=== PATIENT | female | born 1975 | race Two or more races ===

== ENCOUNTER → 2022-09-01 13:43 | Outpatient (BNVA) | payer OTHER, SELFPAY | PROVIDERS: Visit Provider Student in an Organized Health Care Education/Training Program | DX: M67.911 Unspecified disorder of synovium and tendon, right shoulder (principal); M79.7 Fibromyalgia; M17.0 Bilateral primary osteoarthritis of knee; M77.11 Lateral epicondylitis, right elbow; R53.83 Other fatigue; E66.9 Obesity, unspecified; Z68.30 Body mass index [BMI] 30.0-30.9, adult | CPT/HCPCS: 99202 ==

== ENCOUNTER 2022-10-29 10:44 | Outpatient (REF) | payer OTHER, SELFPAY ==
[2022-10-29 10:57] LABS: MANUAL DIFF FLAG NO
[2022-10-29 11:48] LABS: Basophils Percent Auto 0.3 % (0-2); Eosinophils Absolute Auto 0.1 X10*3/uL (0.0-0.4); Hematocrit 31.5 % (37.0-47.0); Hemoglobin 9.1 g/dl (12.0-16.0); Imm Gran Abs Auto 0.02 X10*3/uL (0.00-0.03); Imm Gran Pct Auto 0.3 % (0.0-0.4); Lymphocytes Percent Auto 33.2 % (20-40); Mean Corpuscular HGB Conc 28.9 g/dl (31.0-35.0); Mean Corpuscular Hemoglobin 20.4 pg (27.0-33.0); Mean Corpuscular Volume 70.6 fL (80.0-98.0); Mean Platelet Volume 10.3 fL (9.4-12.3); Monocytes Absolute Auto 0.5 X10*3/uL (0.1-1.2); Monocytes Percent Auto 8.5 % (2-11); Neutrophils Absolute Auto 3.4 x10*3/uL (2.0-8.3); Neutrophils Percent Auto 56.7 % (45-73); Platelet Count 382 X10*3/uL (160-400); Red Blood Count 4.46 X10*6/uL (4.20-5.50); Red Cell Distribution Width 19.4 % (11.0-16.0); White Blood Count 5.9 X10*3/uL (4.8-10.8)
[2022-10-29 12:30] LABS: Erythrocyte Sedimentation Rate 25 MM/HR (0-20)
[2022-10-29 12:43] LABS: Alanine Aminotransferase 9 U/L (0-31); Albumin Level 4.3 g/dL (3.5-5.0); Alkaline Phosphatase 83 U/L (39-117); Aspartate Amino Transferase 15 U/L (5-31); Bilirubin Total 0.8 mg/dL (0.0-1.0); Blood Urea Nitrogen 10 mg/dL (9-16); Calcium 9.3 mg/dL (8.4-10.2); Estimated Glomerular Filt Rate > 60; Glucose Random 91 mg/dL (60-115); Thyroid Stimulating Hormone 4.74 uIU/mL (0.32-4.0); Total Protein 7.4 g/dL (6.5-8.0)
[2022-10-29 12:52] LABS: Anion Gap 14 (12-20); Carbon Dioxide 22 mmol/L (22-29); Chloride 108 mmol/L (96-108); Potassium 4.4 mmol/L (3.3-5.1); Sodium 140 mmol/L (135-145)
[2022-11-03 13:29] LABS: Vitamin D 25-OH, D2 <4 ng/mL; Vitamin D 25-OH, D3 33 ng/mL; Vitamin D 25-OH, Total 33 ng/mL (30-100)
== END 2022-10-29 10:45 | disposition home or self-care (01) ==
LOC: HO.LAB 10:44
PROVIDERS: PCP Internal Medicine; Visit Provider Student in an Organized Health Care Education/Training Program
DX: Z13.21 Encounter for screening for nutritional disorder (principal); R53.83 Other fatigue; M67.911 Unspecified disorder of synovium and tendon, right shoulder
CPT/HCPCS: 36415; 80053; 82306; 82550; 84443; 85025; 85652; 86140

== ENCOUNTER → 2022-11-26 07:40 | Outpatient (BNVA) | payer OTHER, SELFPAY | PROVIDERS: PCP Internal Medicine; Visit Provider Student in an Organized Health Care Education/Training Program | DX: M79.7 Fibromyalgia (principal); M67.911 Unspecified disorder of synovium and tendon, right shoulder; D50.0 Iron deficiency anemia secondary to blood loss (chronic) | CPT/HCPCS: 99212 ==

== ENCOUNTER 2022-12-24 14:00 | Outpatient (RCR) | payer OTHER, SELFPAY ==
--- NOTE | 2022-12-01 15:03 | MHC.PT.EP ---
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 SHE HAS BEEN WALKING HER DOGS APPROX 30 MIN/ DAY. OBJECTIVELY, Pt HAS DECR HIP/ HS/CALF FLEXIBILITY Rt > Lt LE; DECR STRENGTH IN MARVIN LEs AND LUMBOPELVIC REGION, (+) PES ANSERINE PAIN Rt > Lt, AND (+) LATERAL RETINACULAR TIGHTNESS WITH PAIN. FUNCTIONALLY, Pt IS LIMITED W STAIR MGMT, SQUATTING, BENDING, PROLONGED STANDING OR WALKING, OR REPETITIVE CARRY/LIFT. Pt IS A GOOD PT CANDIDATE, ADDRESSING THE ABOVE FINDINGS, PAIN MGMT, ADDRESSING STRENGTH DEFICITS AND MAXIMIZING FUNCTIONAL INDEPENDENCE. Frequency and Duration: The patient will be seen 2 x WK x 8 WKS Short Term Goals: *DECR Pt'S Rt > Lt KNEE PAIN TO 2-3/10 *INCREASE MARVIN HS AND HIP FLEXIB MARVIN *IMPROVE HIP PSOAS AND CALF MOBILITY TO IMPROVE EFFICIENCY OF GAIT MECHANICS *DEV HEP -> IMPROVE ACTIV OF GLUTES AND QUADS Allergy And Immunology Chief Goals: Pt INDEP W HEP PROGRESSION AND SELF-SX MGMT STRATEGIES IN 8 WKS Pt DEMON IMPROVED ADLs/ WORK TOLERANCE EVIDENT W IMPROVED LEFI SCORE BY 8-10 POINTS (AT EVAL 29/80 ) IN 8 WKS Pt INCR MARVIN LEs STRENGTH BY 1 GRADE IN 8 WKS Treatment Plan: Modalities to reduce pain, spasms and effusion. Manual therapy to restore motion and function. Therapeutic exercise to improve strength and flexibility. Neuromuscular re-education for posture and balance. Therapeutic activities to return to functional activities of daily living. Electronically signed by: LENARD FOX,PT Please sign and return to therapist. Thank you for your referral.
--- NOTE | 2023-01-06 07:24 | MHC.PT.DC ---
[facility] [place] Office [place] Office [place] Office [address] Audrey Kumar [address] [phone] F: [phone] F: [phone] F: [phone] F: [phone] Physical Therapy Discharge Report Diagnosis: BILATERAL PRIMARY OA OF KNEES Date of Surgery: Date of Evaluation: 12/01/22 Date of Discharge: 01/06/23 Treatments to Date: 7 Cancellations to Date: 0 No Shows to Date: 0 Discharge Status: Improved Function Independent with HEP Patient Elected to Stop Discharge Summary: Pt has progressed nicely and is now able to perform advanced functional exercises w/o adverse effect- she has some residual muscle fatigue w progressive HEP. Her bilat knee pain has relatively resolved-> pt has reported that she feels much better and stronger with walking/stairs/working. Pt met her PT goals and felt ready to continue on with her home exercise regimen. Electronically signed by: LENARD FOX,PT Please sign and return to therapist. Thank you for your referral.
== END 2023-01-06 07:22 | disposition home or self-care (01) ==
LOC: HO.PT 14:00
PROVIDERS: Visit Provider Student in an Organized Health Care Education/Training Program
DX: M17.0 Bilateral primary osteoarthritis of knee (principal); M77.11 Lateral epicondylitis, right elbow; M67.911 Unspecified disorder of synovium and tendon, right shoulder
CPT/HCPCS: 97110; 97140; 97162

== ENCOUNTER 2023-01-21 09:29 | Outpatient (REF) | payer OTHER, SELFPAY | END 2023-01-21 09:30 | disposition home or self-care (01) | LOC: HO.MDS 09:29 | PROVIDERS: Visit Provider Internal Medicine | DX: D50.9 Iron deficiency anemia, unspecified (principal) | CPT/HCPCS: 96365; J1756 ==

== ENCOUNTER 2023-01-28 13:53 | Outpatient (REF) | payer OTHER, SELFPAY | END 2023-01-28 13:54 | disposition home or self-care (01) | LOC: HO.MDS 13:53 | PROVIDERS: Visit Provider Internal Medicine | DX: D50.9 Iron deficiency anemia, unspecified (principal) | CPT/HCPCS: 96365; J1756 ==

== ENCOUNTER 2023-02-04 09:59 | Outpatient (REF) | payer OTHER, SELFPAY | END 2023-02-04 10:00 | disposition home or self-care (01) | LOC: HO.MDS 09:59 | PROVIDERS: Visit Provider Internal Medicine | DX: Z53.29 Procedure and treatment not carried out because of patient's decision for other reasons (principal); D50.9 Iron deficiency anemia, unspecified | CPT/HCPCS: J1756 ==

== ENCOUNTER 2023-08-17 13:46 | Outpatient (AMB) | payer OTHER, SELFPAY ==
[2023-08-17 13:49] VITALS: BP 138/90; PULSE 99; TEMP 36.3; O2SAT 99; BMI 31.6
--- NOTE | 2023-08-17 13:49 | MHC.OFFVIS ---
Intake Vital Signs 08/17/23 13:49 Height 4 ft 11 in Weight 156 lb 4.924 oz BMI 31.6 BP 138/90 H Blood Pressure Location Rt brachial Position Sitting Pulse 99 Pulse Source Pulse Oximeter Temp 97.4 F Temp Source Skin Pulse Oximetry (%) 99 Oxygen Delivery Method Room Air Intake Visit Reasons: FMS/OA Intake Note: Here to follow up on FMS and OA. c/o right knee pain s/p exercising. Would like antiinflammatory. Resource Development Manager Required: Yes Resource Development Manager Language: Marine Fitter Name: Avni [id number] Information Interpreted: clinical only Accompanied by: Self / Same As Patient Allergies Penicillins Allergy (Severe, Unverified 08/17/23 13:53) Difficulty Breathing, swelling aspirin [ASA] Allergy (Intermediate, Unverified 08/17/23 13:53) Rash, Rapid Heart Beat sulfamethoxazole [From BACTRIM] Allergy (Mild, Unverified 08/17/23 13:53) Palpitations trimethoprim [From BACTRIM] Allergy (Mild, Unverified 08/17/23 13:53) Palpitations lamotrigine [LAMOTRIGINE] Allergy (Unknown, Unverified 08/17/23 13:53) Rash, High blood pressure Sulfa (Sulfonamide Antibiotics) Allergy (Unknown, Verified 08/17/23 13:53) Swelling and Edema oxcarbazepine [OXCARBAZEPINE] Adverse Reaction (Unknown, Unverified 08/17/23 13:53) high blood pressure Medication List - Last Reconciled 08/17/23 by Sherrill Saldana MD acetaminophen (Tylenol Extra Strength) 500 mg PO Q6H PRN albuterol sulfate 90 mcg/actuation (ProAir HFA) 2 puffs inhalation Q6H PRN biotin 5 mg PO DAILY diclofenac sodium 1% (Voltaren Arthritis Pain) 4 grams topical QID diphenhydramine HCl (Benadryl Allergy) 25 mg PO TID PRN eszopiclone 3 mg PO BEDTIME fluticasone propionate 50 mcg/actuation sprays intranasal hydroxyzine pamoate 50 mg PO BEDTIME lamotrigine 25 mg PO BID levothyroxine 100 mcg PO DAILY loteprednol etabonate 0.5% drps ophthalmic (eye) metformin ER 500 mg PO DAILY multivitamin 1 tab PO DAILY perphenazine 8 mg PO BID sertraline 50 mg PO DAILY sertraline 100 mg PO QAM cqauxow-oswd-jehos-oreg-capryl 100 mg-150 mg- 50 mg-150 mg 100 caps PO DAILY HPI HPI Comments History of Present Illness Details Patient returns for follow-up. She was evaluated by Orthopedics and she went to physical therapy for her right knee pain. States that physical therapy helped pain however she gets medial knee pain with exercises such as cycling, Russ and others. States that Tylenol, Voltaren gel, ibuprofen and Aleve do not provide any help. Initial history: This is a 47-year-old female with a past medical history of anxiety, depression, fibromyalgia, hypothyroidism, PCOS who presents for fibromyalgia follow-up. Upon my evaluation last visit patient had multiple painful areas including knees, elbows, hips. I referred her for physical therapy for bilateral tennis elbow, bilateral greater trochanteric pain syndrome, bilateral knee osteoarthritis. Patient however was not able to schedule physical therapy. She used Voltaren gel for her knees which also did not provide any benefit. She was also referred to weight management and she was told that she does not qualify for bariatric surgery. She also has been complaining of bilateral feet numbness especially at night. Patient chronic anemia due to heavy menstrual periods for many years and she received iron infusions last year. With regards to fibromyalgia she had been on multiple medicines including tramadol, gabapentin, Lyrica which all provided minimal relief. 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 Review of Systems [facility] Reports arthralgias, Reports joint swelling and Reports stiffness Physical Exam Vital Signs: Last Vital Signs Temp 97.4 F 08/17/23 13:49 Pulse 99 08/17/23 13:49 BP 138/90 H 08/17/23 13:49 Pulse Ox 99 08/17/23 13:49 Oxygen Delivery Method Room Air 08/17/23 13:49 BMI result Body Mass Index 31.6 Const General: cooperative, healthy appearing, comfortable and no acute distress Nutritional Appearance: average body habitus Orientation/consciousness: patient oriented x3 Limitations: no limitations HEENT Head: Yes normocephalic and Yes atraumatic Mouth: moist mucous membranes Resp Effort & Inspection: normal respiratory effort and able to speak in complete sentences Neuro General: patient oriented x3 Extrem Other: Right medial knee pain, medial knee pain with mild flexion Assessment & Plan Assessment & Plan (1) Internal derangement of right knee: Code(s): M23.91 - Unspecified internal derangement of right knee Plan: This is a 47-year-old female with a past medical history of fibromyalgia who presents for evaluation of right knee pain. Patient has right medial knee tenderness on exam and significant pain with knee flexion. She gets intermittent buckling of her right knee. Patient completed physical therapy for right knee osteoarthritis without improvement. She tried taking Tylenol, Aleve, Advil and Voltaren gel without improvement. Will order a right knee MRI to evaluate for internal derangement such as meniscal tear Plan I spent 15 minutes reviewing patient's chart, evaluating patient, ordering diagnostic workup, counseling patient and documenting in the chart Orders: Orders MR knee RT wo con Today M23.91 - Unspecified internal derangement of right knee Coding Level of Care Code Est Pt Level 3 (82196) Diagnoses Internal derangement of right knee M23.91
== END 2023-08-17 14:34 | disposition home or self-care (01) ==
PROVIDERS: PCP Internal Medicine; Visit Provider Student in an Organized Health Care Education/Training Program
DX: M23.91 Unspecified internal derangement of right knee (principal)
CPT/HCPCS: 99213

== ENCOUNTER → 2023-08-17 13:46 | Outpatient (BNVA) | payer OTHER, SELFPAY | PROVIDERS: PCP Internal Medicine; Visit Provider Student in an Organized Health Care Education/Training Program | DX: M23.91 Unspecified internal derangement of right knee (principal) | CPT/HCPCS: 99212 ==

== ENCOUNTER 2025-02-07 19:25 | Emergency (ER) | payer OTHER, SELFPAY ==
[2025-02-07 19:30] VITALS: BP 164/74; PULSE 100; RESP 18; TEMP 37.1; O2SAT 98; BMI 30.3
--- NOTE | 2025-02-07 19:30 | ED_ITS ---
HPI - General Adult General Chief complaint: General Medical Stated complaint: personal Related Data Home Medications ?Medication ?Instructions ?Recorded ?Confirmed acetaminophen 500 mg tablet 500 mg PO Q6H PRN Headache 09/01/22 02/08/23 (Tylenol Extra Strength) albuterol sulfate 90 mcg/actuation 2 puff inhalation Q6H PRN Wheezing 09/01/22 02/08/23 aerosol inhaler (ProAir HFA) biotin 5 mg capsule 5 mg PO DAILY 09/01/22 02/08/23 diphenhydramine HCl 25 mg tablet 25 mg PO TID PRN Allergic Reaction 09/01/22 02/08/23 (Benadryl Allergy) eszopiclone 3 mg tablet 3 mg PO BEDTIME 09/01/22 02/08/23 hydroxyzine pamoate 50 mg capsule 50 mg PO BEDTIME 09/01/22 02/08/23 lamotrigine 25 mg tablet 25 mg PO BID 09/01/22 02/08/23 metformin 500 mg tablet,extended 500 mg PO DAILY 09/01/22 02/08/23 release 24 hr multivitamin 1 tab PO DAILY 09/01/22 02/08/23 perphenazine 8 mg tablet 8 mg PO BID 09/01/22 02/08/23 turmeric 100 mg-luiza 150 100 cap PO DAILY 09/01/22 02/08/23 mg-olive 50 mg-oreg 150 mg-capryl capsule fluticasone propionate 50 spray intranasal 08/17/23 mcg/actuation nasal spray,suspension levothyroxine 100 mcg tablet 100 mcg PO DAILY 08/17/23 loteprednol etabonate 0.5 % eye drp ophthalmic (eye) 08/17/23 drops,suspension sertraline 100 mg tablet 100 mg PO QAM 08/17/23 sertraline 50 mg tablet 50 mg PO DAILY 08/17/23 Previous Rx's ?Medication ?Instructions ?Recorded diclofenac sodium 1 % topical gel 4 g topical QID #100 grams 09/01/22 (Voltaren Arthritis Pain) Allergies Allergy/AdvReac Type Severity Reaction Status Date / Time Penicillins Allergy Severe Difficulty Verified 02/07/25 19:33 Breathing, swelling aspirin [ASA] Allergy Intermediate Rash, Verified 02/07/25 19:33 Rapid Heart Beat sulfamethoxazole Allergy Mild Palpitation Verified 02/07/25 19:33 [From BACTRIM] s trimethoprim [From BACTRIM] Allergy Mild Palpitation Verified 02/07/25 19:33 s Sulfa (Sulfonamide Allergy Unknown Swelling Verified 02/07/25 19:33 Antibiotics) and Edema gluten Allergy Unknown Verified 02/07/25 19:33 oxcarbazepine [OXCARBAZEPINE] AdvReac Unknown high blood Verified 02/07/25 19:33 pressure PMFSH Past Medical History Medical History (Updated 02/13/25 @ 01:46 by Venkat Ness) Fibromyalgia, primary PCO (polycystic ovaries) Anxiety Hypothyroidism Surgical History No history of previous surgery Family History Family History Mother Hypertension Thyroid disease Father Mental health disorder Sister Ovarian cancer Social History Social History Household Members: Spouse Housing: House Alcohol intake: current Alcohol intake frequency: holidays/special occasions only Patient Tobacco Use Status: Never used Tobacco Advance Directives: No Advance Directives Information Provided: Yes Do you have a plan to hurt others: No Plan service: No Current occupational status: employed and retired 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 She reports her pain started 4 days ago and now she feels a large ball in the area. Denies any history of similar. Plan for direct examination. Not visualized in triage Discharge Plan Discharge Clinical Impression: Pelvic pain Patient Disposition: Left W/O Completing Treatment Prescriptions: No Action lamotrigine 25 mg tablet 25 mg PO BID eszopiclone 3 mg tablet 3 mg PO BEDTIME hydroxyzine pamoate 50 mg capsule 50 mg PO BEDTIME metformin 500 mg tablet extended release 24 hr 500 mg PO DAILY perphenazine 8 mg tablet 8 mg PO BID albuterol sulfate [ProAir HFA] 90 mcg/actuation HFA aerosol inhaler 2 puff inhalation Q6H PRN (Reason: Wheezing) diphenhydramine HCl [Benadryl Allergy] 25 mg tablet 25 mg PO TID PRN (Reason: Allergic Reaction) acetaminophen [Tylenol Extra Strength] 500 mg tablet 500 mg PO Q6H PRN (Reason: Headache) multivitamin Tablet 1 tab PO DAILY biotin 5 mg capsule 5 mg PO DAILY jejqdiwd-tszc-ajaje-oreg-capry 100 mg-150 mg- 50 mg-150 mg capsule 100 cap PO DAILY diclofenac sodium [Voltaren Arthritis Pain] 1 % gel 4 g topical QID Qty: 100 1RF Rx Instructions: apply to single knee, ankle, foot; for foot includes sole/toes/top of foot levothyroxine 100 mcg tablet 100 mcg PO DAILY sertraline 50 mg tablet 50 mg PO DAILY sertraline 100 mg tablet 100 mg PO QAM loteprednol etabonate 0.5 % drops,suspension ophthalmic (eye) fluticasone propionate 50 mcg/actuation spray,suspension intranasal Discharge Date/Time: 02/08/25 00:39
--- OUTSIDE RECORDS SUMMARY | 2025-02-07 22:24 | XMS_ITS | Clinical Summary ---
Author Organization [facility] Address [address] [place] [address] Care Team Providers Care Casino Floor Person Name Role Phone She Gaming MD Primary Care Provider [phone] Allergies Active Allergy Reactions Criticality Noted Date Comments Aspirin 05/21/2021 Sulfamethoxazole-Trimethoprim 2020 Codeine 05/21/2021 Doxycycline 05/21/2021 Naproxen 05/21/2021 Penicillins 05/21/2021 Medications Medication Sig Dispensed Refills Start Date End Date Status levothyroxine (SYNTHROID) tablet 100 mcg Take 100 mcg by mouth every morning on an empty stomach. 0 Active fluticasone (FLONASE) 50 MCG/ACT nasal spray spray/apply 2 sprays in each nostril daily. 0 Active omeprazole (PriLOSEC) 20 MG capsule Take 20 mg by mouth daily. 0 Active lamoTRIgine (LaMICtal) 25 MG tablet Take 25 mg by mouth 2 (two) times a day. 0 Active perphenazine (TRILAFON) 8 MG tablet Take 8 mg by mouth 2 (two) times a day. 0 Active zaleplon (SONATA) 5 MG capsule Take 10 mg by mouth every night at bedtime. 0 Active sertraline (ZOLOFT) 100 MG tablet Take 100 mg by mouth daily. 0 Active simethicone (MYLICON) 125 MG chewable tablet Chew 125 mg by mouth every 6 (six) hours as needed for flatulence. 0 Active fexofenadine (FREDY) 180 MG tablet Take 180 mg by mouth daily. 0 Active tiZANidine (ZANAFLEX) 2 MG capsule Take 2 mg by mouth 3 (three) times a day. 0 Active albuterol 108 (90 Base) MCG/ACT inhaler Inhale 2 puffs into the lungs every 4 (four) hours as needed for wheezing. 0 Active ketotifen (ZADITOR) 0.025 % ophthalmic solution Place 1 drop into both eyes 2 (two) times a day. 0 Active diphenhydrAMINE (BENADRYL) 25 mg capsule Take 25 mg by mouth daily as needed for itching. 0 Active metFORMIN (GLUCOPHAGE-XR) ER 24 hr tablet 500 mg Take 500 mg by mouth every morning with breakfast. 0 Active fluticasone (FLOVENT HFA) 110 MCG/ACT inhaler Inhale 1 puff into the lungs 2 (two) times a day. 0 Active acetaminophen (TYLENOL) 650 MG CR tablet Take 650 mg by mouth every 8 (eight) hours as needed for pain. 0 Active triamcinolone acetonide (KENALOG-40) 40 MG/ML injection Inject 40 mg into the articular space once. 0 Active eszopiclone (LUNESTA) 3 MG TABS tablet Take 3 mg by mouth every night at bedtime. Take immediately before bedtime 0 Active Active Problems Problem Noted Date Diagnosed Date Hyperlipidemia 05/23/2021 Hypothyroid 05/23/2021 Lactose intolerance 05/23/2021 Migraine 05/23/2021 Polycystic ovary disease 05/23/2021 Adult celiac disease 05/23/2021 Iron deficiency anemia 04/17/2021 Overview: 03/2021- referred to hematology Family History Medical History Relation Name Comments Breast cancer Maternal Aunt Ovarian cancer Sister 1 Breast cancer Sister 2 Pancreatic cancer Sister 2 Relation Name Status Comments Maternal Aunt Alive Breast cancer diagnosed after age 50 Sister 1 Sister 2 Alive Social History Tobacco Use Types Packs/Day Years Used Date Smoking Tobacco: Never Smokeless Tobacco: Never Alcohol Use Standard Drinks/Week Comments Never 0 (1 standard drink = 0.6 oz pur e alcohol) Sex and Gender Information Value Date Recorded Sex Assigned at Not on file Gender Identity Not on file Sexual Orientation Not on file Last Filed Vital Signs Vital Sign Reading Time Taken Comments Blood Pressure - - Pulse 93 05/23/2021 9:55 AM EDT Temperature 37.1 ??C (98.8 ??F) 05/23/2021 9:55 AM ED T Respiratory Rate - - Oxygen Saturation 100% 05/23/2021 9:55 AM EDT Inhaled Oxygen Concentration - - Weight 61.8 kg (136 lb 3.2 oz) 05/23/2021 9:55 A M EDT Height 149.9 cm (4' 11 ) 05/23/2021 9:55 AM EDT Body Mass Index 27.51 05/23/2021 9:55 AM EDT Plan of Treatment Health Maintenance Due Date Last Done Comments Hepatitis B Vaccines (1 of 3 - 3-dose series) 1977 Hepatitis C Screening 1977 COVID-19 Vaccine (#1) 06/21/1978 Depression Screening 1989 Preventative Health Evaluation 1995 Cervical Cancer Screening (Pap Smear) 1998 Colon Cancer Screening (Colonoscopy) 2022 Influenza Vaccine (#1) 2024 0, 01/22/2015, 10/31/2013, Additional history exists DTap / Tdap / Td (2 - Td or Tdap) 12/09/2028 12/09/2018 Pneumococcal Vaccine Aged Out No long er eligible based on patient's age to complete this topic RSV Ped < 20 months Aged Out No longe r eligible based on patient's age to complete this topic Care Teams Casino Floor Person Relationship Specialty Start Date End Date She Gaming MD PCP - General Internal Medicine 11/26/22
--- OUTSIDE RECORDS SUMMARY | 2025-02-07 22:24 | XMS_ITS | Continuity of Care Document ---
Author Organization [facility], [place] - [facility] Address [address] [place] [phone] Care Team Providers Care Education Diagnostician Name Role Phone HIM CCA OTHER Assessment No assessment recorded. Plan of Treatment Reminders Order Date Submit Date Provider Last Modified By Organization Details Last Modified Time Details Appointments None recorded. Lab culture, urine 2024 025 [facility] (Centralized Electronic Ordering - All Locations), Patient Can Go To The Location Of Their Choice, [id number] 14:06:19 BMP, serum or plasma 2024 025 Formerly [facility], [facility], [address] [place] [address], [id number], 21:19:06 Referral None recorded. Procedures None recorded. Surgeries None recorded. Imaging None recorded. Medication Orders lactated Ringers intravenous solution 2024 025 [facility] #[id number], [address] [place] [address], [id number], 5 14:11:20 Cipro 250 mg tablet 2024 025 [facility] #[id number], [address] [place] [address], [id number], 5 14:11:20 metronidazo le 250 mg tablet 2024 025 [facility] #22557, [address] [place] [address], [id number], 5 14:12:22 Cipro 500 mg tablet 2024 025 [facility] #50210, [address] [place], [place], [id number], 5 14:13:14 metronidazo le 500 mg tablet 2024 025 [facility] #49752, [address] [place], [place], [id number], 5 14:13:03 Patient TargetsNo targets recorded. Patient InstructionsNo instructions recorded. Reason for Referral None Reported. Results Created Date Observation Date Name Description Value Unit Range Abnormal Flag Note LastModifiedBy Organization Detail LastModifiedTime Result Notes None recorded. Medical Equipment None Reported. Allergies Allergen ID Allergen Name Allergen Category Reaction Reaction Severity Criticality Documentation Date Start Date Code Code System Note Provider Name and Address Organization Details Recorded Time 1101 Product containin g penicilli n (product) medicatio n Not available Not available Not available 08/25/2022 46897 8001 SNOMED Not Available [facility] - production 4 03:37:54 1102 Iodinated contrast media (substanc e) medicatio n Not available Not available Not available 08/25/2022 64933 2004 SNOMED She Christie MD [address] [place] [address],[address], [place], [phone], [facility] 2 13:30:59 1103 aspirin medicatio n Not available Not available Not available 08/25/2022 1191 RxNorm Not Available [facility] - production 4 03:37:54 32372 Bactrim medicatio n Not available Not available Not available 01/20/2025 39934 9 RxNorm SHIN CHARLES MD [address] [facility],[address], [place], [phone], [facility] 5 19:22:09 [address]475 naproxen medicatio n Not available Not available Not available 01/20/2025 7258 RxNorm SHIN CHARLES MD [address] [place] [address],[address], [place], [phone], [facility] 5 19:22:29 [address]6054 codeine medicatio n Not available Not available Not available 01/20/2025 2670 RxTy CHARLES MD [address], [place], [address], [facility] 19:22:54 63510 doxycycli ne Not available Not available Not available Not available 01/20/2025 3640 RxTy CHARLES MD [address] [facility],[address], [place], [address], [facility] 19:23:14 59513 wheat gluten extract food Not available Not available Not available 01/20/2025 91510 81 RxTy CHARLES MD [address] [facility],[address], [place], [address], [facility] 19:23:21 Medications Name Sig Start Date Stop Date Status Note LastModified by Organization Details LastModified Time quetiapine 25 mg tablet TAKE 1/2 TO 1 TABLET BY MOUTH AT BEDTIME NEEDED active Not Available Not Available No t Available lamotrigine 150 mg tablet TAKE 1 TABLET BY MOUTH EVERY EVENING active Not Available Not Available No t Available prednisone 10 mg tablet active Not Available Not Available Not Available tizanidine 2 mg tablet TAKE 1 TABLET BY MOUTH EVERY 8 HOURS NEEDED FOR MUSCLE SPASM. NOT TO EXCEED 3 DOSES PER DAY active Not Available Not Available No t Available cefpodoxime 100 mg tablet TAKE 1 TABLET BY MOUTH EVERY 12 HOURS FOR 7 DAYS active Not Available Not Available N ot Available prochlorpera zine maleate 5 mg tablet TAKE 1 TABLET BY MOUTH THREE TIMES DAILY FOR 3 DAYS NEEDED FOR NAUSEA/VOMI TING active Not Available Not Available No t Available meloxicam 15 mg tablet TAKE 1 TABLET BY MOUTH DAILY active Not Available Not Available Not Available FreeStyle Lancets 28 gauge USE TO CHECK BLOOD SUGAR TWICE DAILY active Not Available Not Available No t Available sertraline 100 mg tablet TAKE 2 TABLETS BY MOUTH EVERY MORNING active Not Available Not Available No t Available olanzapine 5 mg tablet TAKE 1 TABLET BY MOUTH EVERY EVENING active Not Available Not Available No t Available hydroxyzine pamoate 50 mg capsule TAKE 1 CAPSULE BY MOUTH TWICE DAILY NEEDED FOR ANXIETY active Not Available Not Available No t Available metronidazol e 500 mg tablet TAKE 1 TABLET BY MOUTH EVERY 8 HOURS FOR 10 DAYS active Not Available Not Available No t Available ciprofloxaci n 500 mg tablet TAKE 1 TABLET BY MOUTH EVERY 12 HOURS FOR 10 DAYS active Not Available Not Available Not Available tramadol 50 mg tablet TAKE 1 TABLET BY MOUTH EVERY 8 HOURS NEEDED FOR PAIN active Not Available Not Available No t Available lamotrigine 25 mg tablet TAKE 2 TABLETS BY MOUTH AT BEDTIME active Not Available Not Available No t Available levothyroxin e 100 mcg tablet TAKE 1 TABLET BY MOUTH DAILY active Not Available Not Available Not Available lorazepam 0.5 mg tablet TAKE 1 TABLET BY MOUTH DAILY NEEDED FOR ANXIETY active Not Available Not Available Not Available tamsulosin 0.4 mg capsule TAKE 1 CAPSULE BY MOUTH DAILY active Not Available Not Available Not Available amitriptylin e 10 mg tablet TAKE 1 TABLET BY MOUTH DAILY AT BEDTIME active Not Available Not Available N ot Available baclofen 10 mg tablet TAKE 1 TABLET BY MOUTH THREE TIMES DAILY NEEDED FOR MUSCLE SPASM. MAY CAUSE SEDATION active Not Available Not Available No t Available benzonatate 100 mg capsule TAKE 1 CAPSULE BY MOUTH THREE TIMES DAILY FOR 10 DAYS active Not Available Not Available Not Available tobramycin 0.3 % eye drops INSTILL 2 DROPS INTO BOTH EYES FOUR TIMES DAILY FOR 7 DAYS active Not Available Not Available No t Available ibuprofen 400 mg tablet TAKE 1 TABLET BY MOUTH EVERY 8 HOURS active Not Available Not Available No t Available hydroxyzine HCl 25 mg tablet TAKE 1 TABLET BY MOUTH FOUR TIMES DAILY NEEDED FOR ANXIETY active Not Available Not Available Not Available mirtazapine 15 mg tablet TAKE 1 TABLET BY MOUTH DAILY AT BEDTIME active Not Available Not Available N ot Available ibuprofen 600 mg tablet TAKE 1 TABLET BY MOUTH DAILY NEEDED FOR PAIN OR FIBROMYALGI A OR FLARE UP active Not Available Not Available No t Available perphenazine 8 mg tablet TAKE 1 TABLET BY MOUTH TWICE DAILY active Not Available Not Available No t Available fluticasone propionate 50 mcg/actuatio n nasal spray,suspen glenis SHAKE LIQUID AND USE 1 SPRAY IN EACH NOSTRIL TWICE DAILY active Not Available Not Available Not Available metformin ER 500 mg tablet,exten ded release 24 hr TAKE 1 TABLET BY MOUTH DAILY active Not Available Not Available Not Available sertraline 50 mg tablet TAKE 1 TABLET BY MOUTH DAILY. TOGETHER WITH A 100 MG. TOTAL DOSE 150 MG active Not Available Not Available Not Available doxycycline hyclate 100 mg tablet TAKE 1 TABLET BY MOUTH TWICE DAILY FOR 10 DAYS active Not Available Not Available No t Available lamotrigine 100 mg tablet TAKE 1 TABLET BY MOUTH EVERY EVENING active Not Available Not Available No t Available metocloprami de 10 mg tablet TAKE 1 TABLET BY MOUTH FOUR TIMES DAILY FOR 7 DAYS active Not Available Not Available N ot Available levothyroxin e 112 mcg tablet TAKE 1 TABLET BY MOUTH DAILY active Not Available Not Available Not Available aripiprazole 10 mg tablet TAKE 1/2 TABLET BY MOUTH DAILY FOR 1 WEEK. INCREASE TO 1 TABLET DAILY active Not Available Not Available No t Available nitrofuranto in monohydrate/ macrocrystal s 100 mg capsule TAKE 1 CAPSULE BY MOUTH TWICE DAILY FOR 7 DAYS active Not Available Not Available No t Available eszopiclone 3 mg tablet TAKE 1 TABLET BY MOUTH AT BEDTIME NEEDED active Not Available Not Available No t Available tizanidine 4 mg capsule TAKE 1 CAPSULE BY MOUTH THREE TIMES DAILY NEEDED FOR MUSCLE SPASMS active Not Available Not Available No t Available asenapine 5 mg sublingual tablet TAKE 1 TABLET UNDER THE TONGUE EVERY NIGHT active Not Available Not Available Not Available Allergy Relief (fexofenadin e) 180 mg tablet TAKE 1 TABLET BY MOUTH DAILY NEEDED FOR ALLERGY SYMPTOMS active Not Available Not Available No t Available BinaxNOW COVID-19 Ag Self Test kit TEST DIRECTED TODAY active Not Available Not Available No t Available Paxlovid 300 mg (150 mg x 2)-100 mg tablets in a dose pack TAKE 3 TABLETS BY MOUTH TWICE DAILY FOR 5 DAYS active Not Available Not Available No t Available Vitals Date Recorded Body temperature Body height Oxygen saturation Oxygen saturation in Arterial blood by Pulse oximetry Respiratory rate Heart rate Body weight Systolic blood pressure Diastolic blood pressure Provider Name and Address Organization Details Last Updated DateTime 5 98.8 [degF] 149.86 cm 98 % 98 % 18 /min 96 /min 05116.7 6 g 141 mm[Hg] 86 mm[Hg] Not Available [facility] 5 19:03:51 Social History None recorded. Functional Status None recorded. Mental Status None recorded. Family History Nothing Reported. Medical History No medical history recorded. Gynecological HistoryNo gynecological history recorded. Obstetrics History GPAL:G 0 P 0 0 0 0 Past Encounters Encounter ID Performer Location Encounter Start Date Encounter Closed Date Diagnosis/Indication Diagnosis SNOMED-CT Code Diagnosis ICD10 Code Diagnosis Note [id number] SHIN CHARLES MD [facility] [address] [place] [phone] 01/20/2025 19:03:50 01/22/2025 17:12:12 Left upper quadrant pain 299680057 R10.12 Evaluation in the field was performed by my music therapist [employer] colleague, as noted above, I provided real-time direction and supervisio n for this visit. The evaluation revealed 49-year-ol d female presenting with LUQ abdominal pain and diarrhea since Wednesday, following red meat consumptio n. Reports nausea vomiting and diarrhea yesterday, which have subsided.P kristy visited the ED but left due to long wait; had CBC, UA, and ECG but is unaware of results.Hi story notable for irritable bowel syndrome (IBS) and gluten sensitivit y (per recent colonoscop y). Pain is 5/10 at rest, escalating to 10/10 at worst.Honorio tionally, patient reports possible UTI symptoms (dysuria, mild back discomfort over kidneys) and has been taking AZO. She also describes chest and back pain associated with abdominal pain and decreased oral intake due to pain. Also notes watery vaginal discharge. Denies ; last menstrual period was early December. VS: BP 141/86 mmHg, HR 96 bpm, RR 18/min, SpO? 98% on room air, Temp 98.8? ? ?FExam: AAO, mild distress due to painChest: Pain reproducib le on palpationA bdomen: Distended but soft, with significan t tenderness to palpation, primarily in the LUQ, flank, and epigastric region; bowel sounds present in all quadrantsM ild left CVA tenderness Labs:UA could not be interprete d due to AZO use; urine culture collectedB MP: Normal electrolyt es and renal functionHg b 8.8 g/dL (Patient reports a history of anemia with a baseline as low as 6 g/dL)Aller gies reviewed. Impression :Left abdominal pain? d ifferentia l includes diverticul itis, gastroente ritis, and urinary tract infection Plan:-1L Lactated Ringer? s was administer ed.-Urine culture was sent to [facility]; results will be followed.- Empiric treatment for possible diverticul itis was initiated with Metronidaz ole 500 mg every 8 hours and Ciprofloxa wilton 500 mg twice daily for 10 days. First doses were administer ed by paramedics .-The patient was advised to maintain bowel rest with clear liquids for at least 24 hours, then transition to soups for a few days until abdominal pain improves, followed by a BRAT diet.-The patient was advised to seek emergency evaluation if there is no improvemen t within 24 hours of starting antibiotic s, as imaging, including a CT scan, may be required.- Red flag symptoms were discussed with the patient including : severe or worsening abdominal pain, high fever ?101? ? ?F, worsening nausea and vomiting, inability to tolerate oral intake, severe abdominal tenderness , rigidity, severe diarrhea or bloody stools, shortness of breath, dizziness, or lightheade dness Primary care, consider__ _ Dispositio n: We discussed the diagnostic uncertaint y of home visits and the risk associated with this. In this case, the patient and I felt this to be an acceptable and reasonable amount of risk given the benefit of avoiding an ED visit. We discussed the need to seek care urgently/e mergently in the setting of any new or worsening serious symptoms, particular ly severe or worsening abdominal pain, high fever ?101? ? ?F, worsening nausea and vomiting, inability to tolerate oral intake, severe abdominal tenderness , rigidity, severe diarrhea or bloody stools, shortness of breath, dizziness, or lightheade dness. Health Concerns Section Related Observation LastModified by Organization Detai ls LastModified Time None Recorded Concern Status LastModified by Organization Details LastModified Time None Recorded Payers Encounter Date Sequence Insurance Name Policy Number Policy Obando Covered Member ID Obando Member ID Guarantor Name 01/20/2025 1 [facility] - DOS ON OR AFTER 2023 - DUAL ELIGIBLE - ALF OPTIONS AND ONE CARE (MEDICARE REPLACEMENT/AD VANTAGE - HMO) Noemi Blas [id number] Noemi Blas Notes Date Note Type Note Provider Name and Address Organization Details Recorded Time 01/20/2025 text/html [facility] Nurse Triage Notes (Leilani Segura RN): Reason For Request: Patient has stomach pain, or possible UTI. Patient Reports: Vague abdominal pain greater than 24 hours; Diarrhea ? no blood in stool; Nausea with or without vomiting; Inability to tolerate foods, fluids or daily medications Denies: Sharp focal or diffuse abdominal pain Vomiting blood/coffee ground material Bloating, jaundice new onset with pain Nausea and vomiting greater than 2 hours with abdominal pain Tearing pain that radiates to back Food Impaction Constipation Chief Complaints: Abdominal pain, Nausea PMH: Severe Persistent Mental Illness (SPMI) PMH Reviewed at 01/20/2025:54 Allergies Reviewed at 01/20/2025:54 Comments: Member calls in complaining of abdominal pain, diarrhea, and vomiting. Symptoms are on and off since Wednesday. Stomach is distended. Also feels like she might have a UTI. Denies fevers and chills. No blood or coffee grounds in vomit. Member is dizzy with a poor appetite. Attempted to go to the ER twice but couldn't wait to be seen. Member feeling too uncomfortable. Had blood work and EKG at hospital. Feels like symptoms are slowly getting worse. Member has never had these symptoms before. [facility] RN verified identity via name/. Education provided on expected response time and the member was advised to monitor reported signs/symptoms. Member in agreement to seek emergency treatment if needed. Rudolph Segura RN Athlete Marketing Agent Organization Information for [facility] Business Legal Name: [employer] Address: [address] [place] [address], Vice President Of Compliance: Mateusz Araujo MD CLIA No.: [id number] Athlete Marketing Agent POC Test Results from Mire[facility] Ross iSTAT Chem8+ (19:46:03) Na: 139 mEq/L K: 3.9 mEq/L Cl: 107 mEq/L iCa: 1.21 mmol/L TCO2: 24 mmol/L Glu: 96 mg/dL BUN: 8 mg/dL Crea: 0.8 mg/dL Hct: 26 % Hb: 8.8 g/dL A Attachments uploaded as part of this test result can be found under Documents section. ................... ................... ................... ................... ................... ................... ................... ........ Athlete Marketing Agent Note From Mireille Ross: [facility] makes pt contact. She is found seated on the sofa in her living room. She turns and smiles and makes eye contact w/ [facility]. She is sitting bolt upright w/ her back supported w/ a pillow and her hands resting in her lap. Her skin is pale, warm, and dry. No stridor or sonorous respirations are noted, no facial droop or one sided weakness are observed, and she is not bleeding anywhere. Pt is Primarily Dominican-speaking only, but is on scene to provide translation and pmhx. Pt endorses worsening abdominal distension and colicky pain since Wednesday. That is the last time she has been able to eat and drink w/o excessive pain. She has hx of irritable bowel and is gluten sensitive. Pt endorses 5/10 pain when it is calm and 10/10 at its worst. Yesterday she was nauseous, vomiting, and had diarrhea, but today is only the colicky pain. says she was crying right before [facility] arrival. No blood is reported in emesis or feces. Pt also feels she may have a UTI, as it has been difficult to urinate and she has mild back discomfort over her kidneys. She has been supplementing w/ AZO. Pt also endorses some chest discomfort and back pain w/ the abdominal pain and decreased PO due to the pain. She denies possibility of and reports her last menstrual cycle around the first december. She has tried several times to be seen at the ED, however, she became so und=comfortable, she couldn't sit and wait after several hours each time. [facility] obtains vital signs and pt is assessed. Lung sounds are clear and equal to auscultation. Pt has pain w/ compression of the chest wall. Pain is also elicited w/ percussion over her L kidney. Pt is placed supine w/ knees bent for abdominal examination. General stomach is distended, but soft and very painful to palpation, primarily in LUQ and flank as well as epigastric. Bowel sounds are present in all quadrants. Pt is able to provide clean catch of urine for culture. Urine dip stick unable to be performed due to AZO supplementation. [facility] contacts [facility] and discusses the above. [facility] order urine culture, bmp, and 1L LR IV as well as 500mg cipro and 500mg metronidazole PO. [facility] administers PO medications. A 20ga IV is established in the L AC and blood is drawn for bmp. IV is flushed and locked w/ a saline lock and secured. 1L LR is administered wide open. Pt tolerated fluids well. IV is removed and pressure bandage is applied w/ 2x2 and coban. [facility] ensures pt has no further questions and informs of red flag s/s. Pt and thank [facility] for coming. [facility] is clear. Report completed by SHARON Ross [id number]. [facility] Lab Orders: culture, urine: Performed BMP, serum or plasma: Performed ................... ................... ................... ................... ................... ................... ................... ........ [facility] Consulted: Shin Charles ................... ................... ................... ................... ................... ................... ................... ........ Disposition: Fulfilled SHIN CHARLES MD [address] [facility],[address], [place], [address], [facility] 01/21/2025 14:40:42 OBGyn Episode No OBEpisode recorded.
--- OUTSIDE RECORDS SUMMARY | 2025-02-07 22:24 | XMS_ITS | Data Portability ---
Author Organization [email or web address] [facility], [facility] Address [address] [place] [phone] Care Team Providers Care Regional Transfer Liaison Name Role Phone HIM CCA OTHER Assessment Encounter Date Assessment Date Assessment LastModified by Organization Details LastModified Time 08/25/2022 08/25/2022 I have reviewed and agree with the Assessment and Plan as documented by the Entertainment Usher. I provided real -time medical direction via phone for this encounter, and was available for additional phone based assistance as needed. Patient given the opportunity to ask questions. [email or web address] Not available 08/25/2022 13:32:12 Plan of Treatment Reminders Order Date Submit Date Provider Last Modified By Organization Details Last Modified Time Details Appointments None recorded. Lab culture, urine 2024 [facility] (Centralized Electronic Ordering - All Locations), Patient Can Go To The Location Of Their Choice, [address] 14:06:19 BMP, serum or plasma 2024 025 [facility], [address] [place] [address], [id number], 21:19:06 Referral None recorded. Procedures None recorded. Surgeries None recorded. Imaging None recorded. Medication Orders lactated Ringers intravenous solution 2024 025 [facility][id number], [address], [place], [id number], 14:11:20 Cipro 250 mg tablet 2024 025 [facility] #[id number], [address], [place], [id number], 14:11:20 metronidazo le 250 mg tablet 2024 025 [facility] #76153, [address], [place], [id number], 5 14:12:22 Cipro 500 mg tablet 2024 025 [facility] #[id number], [address], [place], [id number], 5 14:13:14 metronidazo le 500 mg tablet 2024 025 [facility] #34237, [address], [place], [id number], 5 14:13:03 tobramycin 0.3 % eye drops 2021 022 [facility] #[id number], [address], [place], [id number], 13:37:27 Patient TargetsNo targets recorded. Patient InstructionsNo instructions recorded. Reason for Referral None Reported. Results Created Date Observation Date Name Description Value Unit Range Abnormal Flag Note LastModifiedBy Organization Detail LastModifiedTime 01/20/20 25 01/22/2025 NO URINE RECEI KYA no urine received TNP Test not perfo rmed. Gibson top urine tube is for urine cultu re and is not suita ble for urina lysis . TEST: [id number] 8 Urina lysis , Routi ne Not Available [facility] ([facility]) [address] [facility], [place], [address], 01/23/2025 16:06:09 01/20/20 25 01/21/2025 NTI URINE TUBE (GIBSON ) nti urine tube (gibson) Commen t Dear Docto r, The requi sitio n we recei kya for the above patie nt has no test indic ated on the reque st form for one or more of the speci mens submi tted. [place] requi res a writt en and julia d reque st be forwa rded to the testi ng labor atory follo wing the verba l order of a labor atory test. Ankita iraheta compl ete the follo wing and fax to [phone] to exped ite testi ng. Requi red test name( s)___ ___ Requi red test numbe r(s)_ ___ Physi yoshi signa ture_ __ Date_ __ Diagn osis Code: __ In order to maint ain sampl e integ rity, sampl es will be store d for two to seven days from the date of recei pt. A urine cultu re trans port was recei kya with no test indic ated. If testi ng is requi red on this speci men, ankita levine ct the [facility] Clien t Inqui ry/Te chnic al Servi shaheen Depar tment to obtai n a Reque st for Writt en Autho rizat ion Form. Not Available [facility] ([facility]) [address] [facility], [place], [address], 01/23/2025 16:06:10 01/20/20 25 01/25/2025 URINE CULTU RE, ROUTI NE urine culture, routine COMMEN T Test not perfo rmed due to the age of this speci men. Not Available [facility] ([facility]) [address] [facility], [place], [address], 01/25/2025 14:06:19 01/20/20 25 01/25/[address] PROBL EM request problem COMMEN T Test not perfo rmed due to the age of this speci men. TEST: [id number] 7 Urine Cultu re, Routi ne Not Available [facility] ([facility]) [address] [facility], [place], [address], 01/25/2025 14:06:20 Result Notes None recorded. Medical Equipment None Reported. Allergies Allergen ID Allergen Name Allergen Category Reaction Reaction Severity Criticality Documentation Date Start Date Code Code System Note Provider Name and Address Organization Details Recorded Time 1101 Product containin g penicilli n (product) medicatio n Not available Not available Not available 08/25/2022 10923 8001 SNOMED Not Available [facility] - [facility] 4 03:37:54 1102 Iodinated contrast media (substanc e) medicatio n Not available Not available Not available 08/25/2022 34707 2004 SNOMED She Christie MD [address] [facility], [place], [phone], [facility], [employer] 2 13:30:59 1103 aspirin medicatio n Not available Not available Not available 08/25/2022 1191 RxNorm Not Available [facility] - production 4 03:37:54 39415 Bactrim medicatio n Not available Not available Not available 01/20/2025 90328 9 RxNorm SHIN CHARLES MD [address] [facility],[address], [place], [address], [employer], [employer] 5 19:22:09 33082 naproxen medicatio n Not available Not available Not available 01/20/2025 7258 RxNorm SHIN CHARLES MD [address] [facility],[address], [place], [address], [employer] 5 19:22:29 27729 codeine medicatio n Not available Not available Not available 01/20/2025 2670 RxTy CHARLES MD [address], [place], [address], [employer] 19:22:54 85726 doxycycli ne Not available Not available Not available Not available 01/20/2025 3640 Shira CHARLES MD [address], [place], [address], [employer] 19:23:14 67068 wheat gluten extract food Not available Not available Not available 01/20/2025 39092 81 Shira CHARLES MD [address], [place], [address], [employer] 19:23:21 Medications Name Sig Start Date Stop [...] % 98 % 18 /min 96 /min 28581.7 6 g 141 mm[Hg] 86 mm[Hg] Not Available [facility] 5 19:03:51 Date Recorded Body temperature Oxygen saturation Oxygen saturation in Arterial blood by Pulse oximetry Heart rate Respiratory rate Systolic blood pressure Diastolic blood pressure Provider Name and Address Organization Details Last Updated DateTime 2 98.1 [degF] 98 % 98 % 93 /min 18 /min 139 mm[Hg] 86 mm[Hg] Not Available [facility] 2 13:16:36 Social History None recorded. Functional Status None recorded. Mental Status None recorded. Family History Nothing Reported. Medical History No medical history recorded. Gynecological HistoryNo gynecological history recorded. Obstetrics History GPAL:G 0 P 0 0 0 0 Past Encounters Encounter ID Performer Location Encounter Start Date Encounter Closed Date Diagnosis/Indication Diagnosis SNOMED-CT Code Diagnosis ICD10 Code Diagnosis Note [id number] She Christie MD [facility] [address] [place] [phone] 08/25/2022 13:16:20 08/31/2022 13:49:47 Acute conjunctivitis 47126072 H10.33 Cannot stain eye w/ fluoroscei n, so want to avoid steroids if possible although has no reported hx herpes and no facial rash. Has no allergy s/s ie tearing/ runny nose sneezing, so likely early bacterial conjunctiv itis- states has hx same- feels similar. Advised to throw out all eye make up worn in the past week/ good hand washing after touching eyes.ALso advised to avoid touchig dropper directly to the eye. Advised re check immediatel y if worsens- gets fever or perirorbit al erythema/ sts. SHe verbalized understand ing to the medic [id number] SHIN CHARLES MD [facility] [address] [place] [phone] 01/20/2025 19:03:50 01/22/2025 17:12:12 Left upper quadrant pain 655858955 R10.12 Evaluation in the field was performed by my safety belt installer colleague, as noted above, I provided real-time direction and supervisio n for this visit. The evaluation revealed 49-year-ol d female presenting with LUQ abdominal pain and diarrhea since Wednesday, following red meat consumptio n. Reports nausea vomiting and diarrhea yesterday, which have subsided.P atient visited the ED but left due to [...] by Organization Details LastModified Time None Recorded Advance Directives Directive None Recorded Payers Encounter Date Sequence Insurance Name Policy Number Policy Obando Covered Member ID Obando Member ID Guarantor Name 08/25/2022 1 [facility] - DOS PRIOR TO 2023 - DUAL ELIGIBLE (MEDICARE REPLACEMENT/AD VANTAGE - HMO) Noemi Blas [id number] Noemi Blas 01/20/2025 1 [facility] - DOS ON OR AFTER 2023 - DUAL ELIGIBLE - SNF OPTIONS AND ONE CARE (MEDICARE REPLACEMENT/AD VANTAGE - HMO) Noemi Blas [id number] Noemi Blas Notes Date Note Type Note Provider Name and Address Organization Details Recorded Time 08/25/2022 text/html HPI: *Jesus's primary language is Czech, but her speaks Thai fluently. Please call Ciaran when able to give ETA at [phone].* Jesus's , Ciaran believes this 46 y.o. F has conjunctivitis, stating both of her eyes have appeared red w/ yellowish discharge since yesterday. Jesus woke up w/ eyelashes stuck together this am. She c/o eyes feeling irritated and sensitive to light. No recent fevers or other acute s/sx. Chazr tried to go to [facility] yesterday, but the wait was very long and also tried UC, but they didn't have availability without a prior appt. He also put a call into PCP's office yesterday, but has not heard back yet. Ciaran would like medic eval for mbr. He was asked to call back for any worsening s/sx, praveen fevers. Ciaran was also cautioned about contagion if it is conjunctivitis, which he states he is aware of and has been keeping distance from her and washing hands frequently. Allergies: pcn, ASA, IV dye. PMHx includes: anemia, NIDDM, GERD, borderline personality disorder, dizziness, PCOS, fribromyalgia, memory impairment, hallucinations. .................... .................... .................... .................... .................... .................... .................... . CRC Nursing Assessment: Comments: CRC RN DID NOT NEED FURTHER INFO .................... .................... .................... .................... .................... .................... .................... . Entertainment Usher Note: Pt states yesterday she started with some bilateral eye irritation. Today she woke up with yellow discharge. Pt states her eyes are painful and itchy. Pt states she has had this before. [facility]. Prescription called into preferred pharmacy. Red flags discussed .................... .................... .................... .................... .................... .................... .................... . Disposition: FulfilledSEGMD: as above- no fevers/ no URI s/s- denies headache/ n/v She Christie MD [address] [place] [address],[address], [place], [phone], [email or web address] 08/25/2022 13:39:32 01/20/2025 text/html CRC Nurse Triage Notes (Leilani Segura - RN): Reason For Request: Patient has stomach [...] emergency treatment if needed. Rudolph Segura RN Entertainment Usher Organization Information for Mireille Ross Business Legal Name: [employer] Address: [address] [place] [id number], Bus Starter: Mateusz Araujo MD CLIA No.: [id number] Entertainment Usher POC Test Results from Ross, Merikarol - ALS iSTAT Chem8+ (19:46:03) Na: 139 mEq/L K: 3.9 mEq/L Cl: 107 mEq/L iCa: 1.21 mmol/L TCO2: 24 mmol/L Glu: 96 mg/dL BUN: 8 mg/dL Crea: 0.8 mg/dL Hct: 26 % Hb: 8.8 g/dL A Attachments uploaded as part of this test result can be found under Documents section. .................... .................... .................... .................... .................... .................... .................... . Entertainment Usher Note From Mireille Ross: [facility] makes pt contact. She is found seated on the sofa in her living room. She turns and smiles and makes eye contact w/ [facility]. She is sitting bolt upright w/ her back supported w/ a pillow and her hands resting in her lap. Her skin is pale, warm, and dry. No stridor or sonorous respirations are noted, no facial droop or one sided weakness are observed, and she is not bleeding anywhere. Pt is Primarily Czech-speaking only, but is on scene to provide [...] pain. says she was crying right before [facility] arrival. No blood is reported in emesis [...] her last menstrual cycle around the first of December. She has tried several times to be seen at the ED, however, she became so und=comfortable, she couldn't sit and wait after several hours each time. [facility] obtains vital signs and pt is assessed. [...] to be performed due to AZO supplementation. [facility] contacts [facility] [place] and discusses the above. [facility] [place] order urine culture, bmp, and 1L LR IV as well as 500mg cipro and 500mg metronidazole PO. [facility] administers PO medications. A 20ga IV is established in the L AC and blood is drawn for bmp. IV is flushed and locked w/ a saline lock and secured. 1L LR is administered wide open. Pt tolerated fluids well. IV is removed and pressure bandage is applied w/ 2x2 and coban. [facility] ensures pt has no further questions and informs of red flag s/s. Pt and thank [facility] for coming. [facility] is clear. Report completed by SHARON Ross [id number]. [facility] [place] Orders: culture, urine: Performed BMP, serum or plasma: Performed .................... .................... .................... .................... .................... .................... .................... . [facility] [place] [place] Consulted: Shin Charles .................... .................... .................... .................... .................... .................... .................... . Disposition: Fulfilled SHIN CHARLES MD [address] [place] [address],[address], [place], [phone], [facility] 01/21/2025 14:40:42 OBGyn Episode No OBEpisode recorded.
[2025-02-07 22:46] VITALS: BP 149/71; PULSE 87; RESP 18; TEMP 37.1; O2SAT 99
--- NOTE | 2025-02-08 00:37 | PC.NURSE ---
Pt states she wants to leave. Advised that a provider will be over to see her as soon as they can. States Just open the door I want to go. Apologized for wait with no further responses from pt while walking out. Pt ambulatory out of department with steady gait, in no acute distress with all personal belongings and friend.
== END 2025-02-08 00:39 | disposition left against medical advice (07) ==
PROVIDERS: Emergency Provider Emergency Medicine; PCP Family Medicine
DX: R10.2 Pelvic and perineal pain (principal)
CPT/HCPCS: 99283; 99284

== ENCOUNTER 2025-04-08 18:55 | Inpatient (IN) | payer OTHER, SELFPAY ==
[2025-04-08 19:04] VITALS: BP 160/108; PULSE 104; O2SAT 99
[2025-04-08 19:08] VITALS: BP 156/83; PULSE 112; RESP 18; TEMP 36.9; O2SAT 99
--- NOTE | 2025-04-08 19:42 | MHC.EDTECH ---
assumed care of pt @1900
[2025-04-08 19:49] VITALS: BMI 31.9
--- OUTSIDE RECORDS SUMMARY | 2025-04-08 20:06 | XMS_ITS | Clinical Summary ---
Author Organization [facility] Address [address] [place] [address] Phone Care Team Providers Care Furniture Designer Name Role Phone Serge Del Rosario MD Primary Care Provider [phone] Allergies Active Allergy Reactions Criticality Noted Date Comments Aspirin Palpitations High 08/03/2012 Rapid heart beat Codeine Rash,Unknown 07/18/2020 Doxycycline Rash,Unknown 07/02/2020 Gluten Diarrhea 02/22/2025 Pt diagnosed with Celiac disease Naproxen Rash,Unknown 05/08/2016 Penicillins Rash,Shortness of breath High 08/03/2012 Sulfamethoxazole-Trim ethoprim Swelling 07/27/2014 Medications albuterol HFA (PROAIR HFA ; PROVENTIL HFA ; VENTOLIN HFA) 90 mcg/actuation inhaler Inhale 2 puffs by mouth Every 4 hours as needed. Active diphenhydrAMINE (BENADRYL) 25 mg capsule Take 1 capsule (25 mg total) by mouth at bedtime as needed. Active fluticasone propionate (FLONASE) 50 mcg/actuation nasal spray Administer 2 sprays into each nostril 1 (one) time each day. Active levothyroxine (SYNTHROID, LEVOTHROID) 100 mcg tablet Take 1 tablet (100 mcg total) by mouth 1 (one) time each day. 2 Active metFORMIN XR (GLUCOPHAGE-XR) 500 mg 24 hr tablet Take 1 tablet (500 mg total) by mouth 1 (one) time each day with breakfast. 2 Active lamoTRIgine (LaMICtal) 150 mg tablet Take 200 mg by mouth at bedtime. Active QUEtiapine (SEROquel) 25 mg tablet Take 0.5-1 tablets (12.5-25 mg total) by mouth at bedtime as needed. at bedtime 5 Active Encounters Date Type Department Care Team Description 02/23/2025 1:51 PM EDT Anesthesia Event [facility] Main OR [address] [place] [phone] Trey Mckeon MD Malone, Brody, SRNA 02/23/2025 1:15 PM EDT - 02/23/2025 3:00 PM EDT Surgery [facility] Main OR [address] [place] [phone] Vasu Chisholm MD CYSTOSCOPY, URETEROSCOPY, RETROGRADE PYELOGRAM, LASER LITHOTRIPSY, LEFT STENT PLACEMENT [15002 (CPT??)] 02/23/2025 11:49 AM EDT - 02/23/2025 5:23 PM EDT Hospital Encounter [facility] Main OR [address] [place] [phone] Vasu Chisholm MD Discharge Disposition: Home or Self Care 02/23/2025 7:10 AM EDT - 02/23/2025 11:59 PM EDT Hospital Encounter [facility] Xray [address] [place] [phone] Pain Discharge Disposition: Home or Self Care from Last 3 Months Surgical History Surgery Date Site/Laterality Comments COLONOSCOPY 10/09 PROCEDURE: HISTORICAL COLONOSCOPY ESOPHAGOGASTRODUODENOSCOPY 10/19/16 PROCEDURE: IN EGD TRANSORAL BIOPSY SINGLE/MULTIPLE; COMMENT: ?? Larson's rule out H. pylori - neg larson's, neg H. pylori COLONOSCOPY 10/19/16 PROCEDURE: IN COLONOSCOPY FLX DX W/COLLJ SPEC WHEN PFRMD; COMMENT: Within normal to TI ESOPHAGOGASTRODUODENOSCOPY PROCEDURE: IN EGD TRANSORAL BIOPSY SINGLE/MULTIPLE; COMMENT: Performed on August 27, 2020 with noted gastric mucosa and upper esophagus DILATION AND CURETTAGE OF UTERUS Medical History Medical History Date Comments Hypothyroid DX:Hypothyroid Depression DX:Depression Anxiety and depression DX:Anxiet y and depression Allergic rhinitis DX:Allergic rh initis Insomnia DX:Insomnia Migraine DX:Migraine Endometriosis DX:Endometriosis Obesity DX:Obesity Polycystic ovary disease DX:Poly cystic ovary disease Cervical radiculopathy 10/11/2015 DX:Cervic al radiculopathy Hyperlipidemia DX:Hyperlipidemi a GERD (gastroesophageal reflux disease) DX:GERD (gastroesophageal reflux disease) Diarrhea DX:Diarrhea Abdominal bloating DX:Abdominal bloating Lactose intolerance DX:Lactose i ntolerance Family History Medical History Relation Name Comments Arthritis Mother Rheum arthritis Other nephew Arthritis Sister Relation Name Status Comments Brother Alive Father Alive schizophrenia Maternal Grandfather Maternal Grandmother Mother Alive htn, hypothyroi d Other nephew Alive Paternal Grandfather Paternal Grandmother Sister Alive x3 cervical can cer Social History Tobacco Use Types Packs/Day Years Used Date Smoking Tobacco: Never Smokeless Tobacco: Never Alcohol Use Standard Drinks/Week Comments No 0 (1 standard drink = 0.6 oz pur e alcohol) Interpersonal Safety Answer Date Record ed Physical Abuse 02/23/2025 Verbal Abuse 02/23/2025 Comments No Sex and Gender Information Value Date Recorded Sex Assigned at Female 02/23/2025 11:42 AM EDT Legal Sex Female 2:14 AM EST Gender Identity Female 02/23/2025 11:42 AM EDT Sexual Orientation Straight 02/23/2025 11 :42 AM EDT Obstetrics History Last Filed Vital Signs Vital Sign Reading Time Taken Comments Blood Pressure 123/78 02/23/2025 4:34 PM EDT Pulse 86 02/23/2025 4:34 PM EDT Temperature 36.5 ??C (97.7 ??F) 02/23/2025 4:34 PM ED T Respiratory Rate 16 02/23/2025 4:34 PM EDT Oxygen Saturation 97% 02/23/2025 4:34 PM EDT Inhaled Oxygen Concentration - - Weight 66.7 kg (147 lb) 03/26/2022 3:52 PM EDT Height 149.9 cm (4' 11 ) 03/26/2022 3:52 PM EDT Body Mass Index 29.69 03/26/2022 3:52 PM EDT Plan of Treatment Health Maintenance Due Date Last Done Comments Breast Cancer Screening 1977 Diabetes: Annual GFR (Glomerular Filtration Rate) 1977 Diabetes: Annual Foot Exam 1987 Diabetes: Annual Retina Eye Exam 1987 Hepatitis B Vaccines (1 of 3 - 19+ 3-dose series) 1996 Cervical Cancer Screening: Pap Smear 1998 Cholesterol Screening (Lipid Panel) 11/07/2022 Colorectal Cancer Screening: Colonoscopy 11/07/2022 Depression Screening 11/07/2022 HIV Screening 11/07/2022 Hepatitis C Screening 11/07/2022 Medicare Annual Wellness Visit 11/07/2022 Social Influencers of Health Screening 11/07/2022 COVID-19 Vaccine ( season) 2024 07/25/2021, 06/27/2021 Diabetes: Annual Urine Albumin-Creatinine Ratio (uACR) 02/21/2025 Diabetes: Blood Sugar Control Test (HGBA1C) 02/21/2025 Influenza Vaccine (Season Ended) 2025 09/07/2020, 09/27/2017, 01/22/2015, Additional history exists DTaP,Tdap,and Td Vaccines (3 - Td or Tdap) 12/09/2028 12/09/2018, 12/03/2006 Varicella Vaccines Aged Out 07/06/2007, 02/25/2007 No longer eligible based on patient's age to complete this topic HIB Vaccines Aged Out No longer eligi ble based on patient's age to complete this topic HPV Vaccines Aged Out No longer eligi ble based on patient's age to complete this topic Hepatitis A Vaccines Aged Out No long er eligible based on patient's age to complete this topic IPV Vaccines Aged Out No longer eligi ble based on patient's age to complete this topic MMR Vaccines Aged Out No longer eligi ble based on patient's age to complete this topic Meningococcal ACWY Vaccine Aged Out N o longer eligible based on patient's age to complete this topic Meningococcal B Vaccine Aged Out No l onger eligible based on patient's age to complete this topic Pneumococcal Vaccine: Pediatrics (0 to 5 Years) and At-Risk Patients (6 to 64 Years) Aged Out No longer eligible based on patient's age to complete this topic RSV Immunization Patients Under 20 months Aged Out No longer eligible based on patient's age to complete this topic Medical Devices Implanted Type Area Pbx Installer Device Identifier Shelf Expiration Date Model / Serial / Lot Stent Uret [id number] Stretch W/O Gw - Sn/A - [id number] Implanted:Qty: 1 on 02/23/2025 by Vasu Chisholm MD at [facility] Stents Left: Ureter [employer]/GYNECOLG Y 10/18/2027 [id number] / N/A / [id number] Procedures Procedure Name Priority Date/Time Associated Diagnosis Comments XR UROGRAM RETROGRADE Routine 02/23/2025 3:00 PM EDT Pain TH AN LMA(NO CHARGE) Routine 02/23/2025 2:05 PM EDT IN CYSTO W URETEROSCOPY/PYELOS COPY W LITHOTRIPSY INCL INDWELLING URTRL STNT 02/23/2025 1:53 PM EDT Left ureteral stone Case Notes C-ARM, HOLMIUM POCT GLUCOSE BLOOD Routine 02/23/2025 12 :25 PM EDT from Last 3 Months Results * XR Urogram Retrograde (02/23/2025 3:00 PM EDT) Anatomical Region Laterality Modality Body Radio Fluoroscop y 02/23/2025 3:54 PM EDT Impressions 02/23/2025 3:54 PM EDT Impression: 1. Intraoperative images of the upper urinary tract. 2. Fluoroscopy provided in the OR. NC -------- FINAL REPORT -------- Dictated By: Dahiana Macedo Dictated Date: 02/23/2025 15:54 ET Assigned Physician: Dahiana Macedo Reviewed and Electronically Signed By: Dahiana Macedo Signed Date: 02/23/2025 15:54 ET Workstation ID: [id number] Transcribed By: Self Edit Transcribed Date: 02/23/2025 15:54 ET Narrative 02/23/2025 3:54 PM EDT Findings: Digital spot images of the upper urinary tract are submitted from the OR, used intraoperatively by Dr. Chisholm during a retrograde procedure. No radiologist was in attendance. Fluoroscopy was provided in the OR by a mechanical technologist. Cumulative Air Kerma: 12.591 mGy Procedure Note Dahiana Macedo MD - 02/23/2025 Findings: Digital spot images of the upper urinary tract are submitted from the OR,used intraoperatively by Dr. Chisholm during a retrograde procedure. Noradiologist was in attendance. Fluoroscopy was provided in the OR by a mechanical technologist. Cumulative Air Kerma: 12.591 mGy IMPRESSION: Impression: 1. Intraoperative images of the upper urinary tract. 2. Fluoroscopy provided in the OR. NC -------- FINAL REPORT -------- Dictated By: Dahiana Macedo Dictated Date: 02/23/2025 15:54 ET Assigned Physician: Dahiana Macedo Reviewed and Electronically Signed By: Dahiana Macedo Signed Date: 02/23/2025 15:54 ET Workstation ID: [id number] Transcribed By: Self Edit Transcribed Date: 02/23/2025 15:54 ET us Vasu Chisholm MD IMG FLUOROSCOPY PROCEDURE S Final Result * TH AN LMA(NO CHARGE) (02/23/2025 2:05 PM EDT) Dru Quinn SRNA - 02/23/2025 2:05 PM EDT LALO Nicholson ? 02/23/2025 ??2:06 PM General Information and Staff Patient location during procedure: OR Resident/MANPOWER DEVELOPMENT ADVISOR: LALO Nicholson Performed: resident/MANPOWER DEVELOPMENT ADVISOR/CAA Performed by: LALO Nicholson Authorized by: Trey Mckeon MD ?? Intubation Airway not difficult Urgency: elective Final Airway Details Number of attempts at approach: 1Final airway type: LMA Indications and Patient Condition Indications for airway management: anesthesia Spontaneous Ventilation: absent Sedation level: Yes Preoxygenated: yes Soft Tissue Damage: No Dentition Unchanged: Yes Patient position: sniffing MILS maintained throughout Mask difficulty assessment: 0 - not attempted us Trey Mckeon MD ANESTHESIA ORDERABLES Final Re sult * POCT Glucose, blood (02/23/2025 12:25 PM EDT) Glucose POCT 89 70 - 100 mg/dL 02/23/2025 12:26 PM EDT [facility] Blood Capillary blood specimen / Unknown 02/23/2025 12:25 PM EDT 02/23/2025 12:27 PM EDT us Vasu Chisholm MD LAB POINT OF CARE TEST DOCKED DEVICE UNSOLICITED RESULTS Final Result [facility] [address] [place] [address], [place] [phone] from Last 3 Months Insurance [facility] MEDIC[facility] Member Subscriber Plan / Payer (Ef fective 2019-Present) Name:Noemi Brunner Relation to Subscriber:Self Name:Noemi Brunner Payer ID:[id number] Group ID:[id number] Type:Not on file Address: [facility] [place] [address] Care Teams Furniture Designer Relationship Specialty Start Date End Date Serge Del Rosario MD [address] [place] [phone] PCP - General Internal Medicine 02/23/25
--- OUTSIDE RECORDS SUMMARY | 2025-04-08 20:06 | XMS_ITS | Encounter Summary ---
Author Organization [facility] Address [address] [place] [address] Care Team Providers Care Plant Etiologist Name Role Phone She Devries MD Primary Care Provider Ame Vargas MD Primary Care Provide r [facility] Jayde Mccartney MD Primary Care Prov ider Encounter Details Date Type Department Care Team Description 06/12/2016 Hat Cutter Report Medical Records [address] [place] [id number] Social History Tobacco Use Types Packs/Day Years Used Date Smoking Tobacco: Never Smokeless Tobacco: Never Alcohol Use Standard Drinks/Week Comments No 0 (1 standard drink = 0.6 oz pur e alcohol) Sex Assigned at Date Recorded Not on file Job Start Date Occupation Industry Not on file Not on file Not on file documented as of this encounter Plan of Treatment Not on file documented as of this encounter Visit Diagnoses Not on filedocumented in this encounter Care Teams Plant Etiologist Relationship Specialty Start Date End Date She Devries MD PCP - General Internal Medicine 10/10/15 02/04/21 Ame Holloway MD PCP - General Internal Medicine 02/05/21 Jayde Mccartney MD [address] [place] [phone] PCP - General Internal Medicine 05/19/22 documented as of this encounter
--- OUTSIDE RECORDS SUMMARY | 2025-04-08 20:06 | XMS_ITS | Encounter Summary ---
Author Organization [facility] Address [address] [place] [address] Care Team Providers Care Equipment Service Technician Name Role Phone She Devries MD Primary Care Provider Ame Vargas MD Primary Care Provide r [facility] Jayde Mccartney MD Primary Care Prov ider Encounter Details Date Type Department Care Team Description 11/03/2016 Correspondence Review Clerk Report Medical Records [address] [place] [phone] Abstract, Provider Social History Tobacco Use Types Packs/Day Years [...] on filedocumented in this encounter Care Teams Equipment Service Technician Relationship Specialty Start Date End Date She Devries MD PCP - General Internal Medicine 10/10/15 02/04/21 Ame Holloway MD PCP - General Internal Medicine 02/05/21 Jayde Mccartney MD [address] [place] [phone] PCP - General Internal Medicine 05/19/22 documented as of this encounter
--- OUTSIDE RECORDS SUMMARY | 2025-04-08 20:06 | XMS_ITS | Encounter Summary ---
Author Organization [facility] Address [address] [place] [address] Care Team Providers Care Local Owner Operator Truck Driver Name Role Phone Grupo Sagastume MD Primary Care Provider Unavail She Elliott MD Primary Care Provider Ame Vargas MD Primary Care Provide r Unavailable Jayde Mccartney MD Primary Care Prov ider Encounter Details Date Type Department Care Team Description 03/13/2015 Clothes Shaker Report Medical Records [address] [place] [phone] Cris Alonso Social History Tobacco Use Types Packs/Day Years Used Date Smoking Tobacco: Never Smokeless Tobacco: Never Alcohol Use Standard Drinks/Week Comments Not Asked 0 (1 standard drink = 0.6 oz pur e alcohol) Sex Assigned at Date Recorded Not on file Job Start Date Occupation Industry Not on file Not on file Not on file documented as of this encounter Plan of Treatment Not on file documented as of this encounter Visit Diagnoses Not on filedocumented in this encounter Care Teams Local Owner Operator Truck Driver Relationship Specialty Start Date End Date Grupo Sagastume MD PCP - General Internal Medicine 12/04/14 10/09/15 She Devries MD PCP - General Internal Medicine 10/10/15 02/04/21 Ame Holloway MD PCP - General Internal Medicine 02/05/21 Jayde Mccartney MD [address] [place] [phone] PCP - General Internal Medicine 05/19/22 documented as of this encounter
--- OUTSIDE RECORDS SUMMARY | 2025-04-08 20:06 | XMS_ITS | Encounter Summary ---
Author Organization [employer] [facility] Address [address] [place] [address] Care Team Providers Care Buttermaker Name Role Phone She Devries MD Primary Care Provider Ame Vargas MD Primary Care Provide r [facility] Jayde Mccartney MD Primary Care Prov ider Encounter Details Date Type Department Care Team Description 02/28/2017 [facility] Medical Records [address] [place] [phone] Abstract, Provider Social History Tobacco Use Types [...] on filedocumented in this encounter Care Teams Buttermaker Relationship Specialty Start Date End Date She Devries MD PCP - General Internal Medicine 10/10/15 02/04/21 Ame Holloway MD PCP - General Internal Medicine 02/05/21 Jayde Mccartney MD [address] [place] [phone] PCP - General Internal Medicine 05/19/22 documented as of this encounter
--- OUTSIDE RECORDS SUMMARY | 2025-04-08 20:06 | XMS_ITS | Encounter Summary ---
Author Organization [facility] Address [address] [place] [address] Care Team Providers Care Director Electrical Engineering Name Role Phone Grupo Sagastume MD Primary Care Provider Unavail She Elliott MD Primary Care Provider Ame Vargas MD Primary Care Provide r Unavailable Jayde Mccartney MD Primary Care Prov ider Encounter Details Date Type Department Care Team Description 12/20/2014 Bag Bundler Report Medical Records [address] [place] [phone] Cris Alonso Social History Tobacco Use Types [...] on filedocumented in this encounter Care Teams Director Electrical Engineering Relationship Specialty Start Date End Date Grupo Sagastume MD PCP - General Internal Medicine 12/04/14 10/09/15 She Devries MD PCP - General Internal Medicine 10/10/15 02/04/21 Ame Holloway MD PCP - General Internal Medicine 02/05/21 Jayde Mccartney MD [address] [place] [address] [phone] PCP - General Internal Medicine 05/19/22 documented as of this encounter
--- OUTSIDE RECORDS SUMMARY | 2025-04-08 20:06 | XMS_ITS | Encounter Summary ---
Author Organization [facility] Address [address] [place] [address] Care Team Providers Care Marketing Rotation Associate Name Role Phone Ame Holloway MD Primary Care Provide r [facility] Jayde Mccartney MD Primary Care Prov ider Reason for Visit * Reason Onset Date Comments Faxed Refill 09/05/2021 Encounter Details Date Type Department Care Team Description 09/05/2021 Telephone Rheumatology - [address] [address] Andrews Siddiqui PA Faxed Refill Social History Tobacco Use Types Packs/Day Years Used Date Smoking Tobacco: Never Smokeless Tobacco: Never Alcohol Use Standard Drinks/Week Comments No 0 (1 standard drink = 0.6 oz pur e alcohol) Sex Assigned at Date Recorded Not on file Job Start Date Occupation Industry Not on file Not on file Not on file COVID-19 Exposure Response Date Recorded In the last month, have you been in contact with someone who was confirmed or suspected to have Coronavirus / COVID-19? No / Unsure 08/20/2021 1:30 PM EDT documented as of this encounter Miscellaneous Notes * Telephone Encounter - Susy Cobian M.A. - 09/08/2021 8:57 AM EDT Refill request from [facility] for baclofen Discontinued at pcp visit 08/19/21 Lm for return call Ext [phone] documented in this encounter Plan of Treatment Not on file documented as of this encounter Visit Diagnoses Not on filedocumented in this encounter Care Teams Marketing Rotation Associate Relationship Specialty Start Date End Date Ame Holloway MD PCP - General Internal Medicine 02/05/21 Jayde Mccartney MD [address] [place] [phone] PCP - General Internal Medicine 05/19/22 documented as of this encounter
--- OUTSIDE RECORDS SUMMARY | 2025-04-08 20:06 | XMS_ITS | Encounter Summary ---
Author Organization [facility] Address [address] [place] [address] Care Team Providers Care Edger Hand Name Role Phone She Devries MD Primary Care Provider Ame Vargas MD Primary Care Provide r [facility] Jayde Mccartney MD Primary Care Prov ider Encounter Details Date Type Department Care Team Description 03/09/2017 Wellness Visit Medical Records [address] [place] [address] She Devries MD Social History Tobacco Use Types Packs/Day Years [...] on filedocumented in this encounter Care Teams Edger Hand Relationship Specialty Start Date End Date She Devries MD PCP - General Internal Medicine 10/10/15 02/04/21 Ame Holloway MD PCP - General Internal Medicine 02/05/21 Jayde Mccartney MD [address] [place] [address] PCP - General Internal Medicine 05/19/22 documented as of this encounter
--- OUTSIDE RECORDS SUMMARY | 2025-04-08 20:06 | XMS_ITS | Encounter Summary ---
Author Organization [facility] Address [address] [place] [address] Care Team Providers Care Lining Maker Name Role Phone She Devries MD Primary Care Provider Ame Vargas MD Primary Care Provide r [facility] Jayde Mccartney MD Primary Care Prov ider Reason for Visit * Reason Onset Date Comments Blood Pressure Elevated 12/12/2019 Headache 12/12/2019 nausea 12/12/2019 Encounter Details Date Type Department Care Team Description 12/12/2019 Telephone Medicine/Pediatrics - [address] [phone] She Devries MD Blood Pressure Elevated; Headache; nausea Social History Tobacco Use Types Packs/Day Years Used Date Smoking Tobacco: Never Smokeless Tobacco: Never Alcohol Use Standard Drinks/Week Comments No 0 (1 standard drink = 0.6 oz pur e alcohol) Sex Assigned at Date Recorded Not on file Job Start Date Occupation Industry Not on file Not on file Not on file documented as of this encounter Miscellaneous Notes * Telephone Encounter - Genna Troy L.P.N. - 12/12/2019 1:23 PM EST BP 140/90 he thinks He states she has been eating better Has nausea and headaches He states her level is out of control He was not clear what is was saying To go to a walk in But wanted an apt booked for Apt booked * Telephone Encounter - Anastasia Chaparro - 12/12/2019 1:03 PM EST Symptoms patient is having: Patient c/o nausea, headaches and high BP If pain or injury related was it due to an accident at work or from a motor vehicle accident? NO If yes, gather 3rd alliance party insurance information Date of accident/Injury: How long has patient had these symptoms?: today PCP: She Gaming Payor: [employer] [facility] MCR / Plan: [facility] / Product Type: HMO [id number] documented in this encounter Plan of Treatment Not on file documented as of this encounter Visit Diagnoses Not on filedocumented in this encounter Care Teams Lining Maker Relationship Specialty Start Date End Date She Devries MD PCP - General Internal Medicine 10/10/15 02/04/21 Ame Holloway MD PCP - General Internal Medicine 02/05/21 Jayde Mccartney MD [address] [place] [phone] PCP - General Internal Medicine 05/19/22 documented as of this encounter
--- OUTSIDE RECORDS SUMMARY | 2025-04-08 20:06 | XMS_ITS | Encounter Summary ---
Author Organization [facility] Address [address] [place] [address] Care Team Providers Care Stakeholder Manager Name Role Phone Damion Sagastume MD Primary Care Provider UnavailGrupo Lara MD Primary Care Provider Unavail able She Devries MD Primary Care Provider UnavailAme Mccormick MD Primary Care Provide r Unavailable Jayde Mccartney MD Primary Care Prov ider Encounter Details Date Type Department Care Team Description 08/26/2012 Transfer Records Medical Records [address] [place] [phone] Abstract, Provider Social History Tobacco Use Types Packs/Day Years Used Date Smoking Tobacco: Never Alcohol Use Standard Drinks/Week Comments [...] on filedocumented in this encounter Care Teams Stakeholder Manager Relationship Specialty Start Date End Date Damion Sagastume MD PCP - General Internal Medicine 07/05/12 11/28/14 Grupo Sagastume MD PCP - General Internal Medicine 12/04/14 10/09/15 She Devries MD PCP - General Internal Medicine 10/10/15 02/04/21 Ame Holloway MD PCP - General Internal Medicine 02/05/21 Jayde Mccartney MD [address] [place] [phone] PCP - General Internal Medicine 05/19/22 documented as of this encounter
--- OUTSIDE RECORDS SUMMARY | 2025-04-08 20:06 | XMS_ITS | Encounter Summary ---
Author Organization [facility] Address [address] [place] [address] Care Team Providers Care Solid Waste Facility Operator Name Role Phone Grupo Sagastume MD Primary Care Provider Unavail She Elliott MD Primary Care Provider Ame Vargas MD Primary Care Provide r Unavailable Jayde Mccartney MD Primary Care Prov ider Encounter Details Date Type Department Care Team Description 10/09/2015 Lead Pourer Report Medical Records [address] [place] [id number] Abstract, Provider Social History Tobacco Use Types [...] on filedocumented in this encounter Care Teams Solid Waste Facility Operator Relationship Specialty Start Date End Date Grupo Sagastume MD PCP - General Internal Medicine 12/04/14 10/09/15 She Devries MD PCP - General Internal Medicine 10/10/15 02/04/21 Ame Holloway MD PCP - General Internal Medicine 02/05/21 Jayde Mccartney MD [address] [place] [id number] PCP - General Internal Medicine 05/19/22 documented as of this encounter
--- OUTSIDE RECORDS SUMMARY | 2025-04-08 20:06 | XMS_ITS | Encounter Summary ---
Author Organization [employer] [facility] Address [address] [place] [address] Care Team Providers Care Program Director Group Work Name Role Phone She Devries MD Primary Care Provider Ame Vargas MD Primary Care Provide [facility] Jayde Mccartney MD Primary Care Prov ider Encounter Details Date Type Department Care Team Description 12/27/2018 Occupational Health And Safety Adviser Report Medical Records [address] [place] [address] Patrick Herbert MD Social History Tobacco Use Types Packs/Day [...] on filedocumented in this encounter Care Teams Program Director Group Work Relationship Specialty Start Date End Date She Devries MD PCP - General Internal Medicine 10/10/15 02/04/21 Ame Holloway MD PCP - General Internal Medicine 02/05/21 Jayde Mccartney MD [address] [place] [id number] PCP - General Internal Medicine 05/19/22 documented as of this encounter
--- OUTSIDE RECORDS SUMMARY | 2025-04-08 20:06 | XMS_ITS | Encounter Summary ---
Author Organization [facility] Address [address] [place] [address] Care Team Providers Care Banding Machine Operator Name Role Phone Ame Holloway MD Primary Care Provide r [facility] Jayde Mccartney MD Primary Care Prov ider Reason for Visit * Reason Onset Date Comments Pain And Swelling 10/15/2021 Encounter Details Date Type Department Care Team Description 10/15/2021 Telephone Rheumatology - [address] [address] Andrews Siddiqui PA Pain And Swelling Social History Tobacco Use Types Packs/Day Years [...] have Coronavirus / COVID-19? No / Unsure 10/02/2021 9:34 AM EDT documented as of this encounter Miscellaneous Notes * Telephone Encounter - Cris Buckner L.P.N. - 10/15/2021 2:11 PM EST Spoke with Next available 10-29-21 in [place] Denies red or warmth Some swelling,discomfort walking,bending leg Will call his to see if she wants this appt,scheduled appt until pt calls back * Telephone Encounter - Andrews Siddiqui PA-C - 10/15/2021 12:50 PM EST If she is having pain, redness, and swelling in the leg, this should be seen sooner. She is more likely to be seen by her primary care team or urgent care to ensure there is no associated skin or joint infection. * Telephone Encounter - Kaya Warren - 10/15/2021 12:18 PM EST Patients called stated that Noemi has been complaining of leg pain, I asked if there was any swelling he stated yes and also said that is hot sometimes. I made her an appointment for 11/18/21, but not sure if she needs to be seen sooner documented in this encounter Plan of Treatment Not on file documented as of this encounter Visit Diagnoses Not on filedocumented in this encounter Care Teams Banding Machine Operator Relationship Specialty Start Date End Date Ame Holloway MD PCP - General Internal Medicine 02/05/21 Jayde Mccartney MD [address] [place] [id number] PCP - General Internal Medicine 05/19/22 documented as of this encounter
--- OUTSIDE RECORDS SUMMARY | 2025-04-08 20:06 | XMS_ITS | Clinical Summary ---
Author Organization [facility] [facility] Address [address] [place] [address] Care Team Providers Care Senior Developer Name Role Phone She Gaming MD Primary Care Provider [phone] Allergies Active Allergy Reactions Criticality Noted Date [...] age to complete this topic Care Teams Senior Developer Relationship Specialty Start Date End Date She Gaming MD PCP - General Internal Medicine 11/26/22
--- OUTSIDE RECORDS SUMMARY | 2025-04-08 20:06 | XMS_ITS | Encounter Summary ---
Author Organization [employer] [facility] Address [address] [place] [address] Care Team Providers Care Shadowgraph Operator Name Role Phone She Devries MD Primary Care Provider Ame Vargas MD Primary Care Provide r [facility] Jayde Mccartney MD Primary Care Prov ider Encounter Details Date Type Department Care Team Description 08/20/2017 Transfer Records Medical Records [address] [place] [address] Social History Tobacco Use Types Packs/Day Years [...] on filedocumented in this encounter Care Teams Shadowgraph Operator Relationship Specialty Start Date End Date She Devries MD PCP - General Internal Medicine 10/10/15 02/04/21 Ame Holloway MD PCP - General Internal Medicine 02/05/21 Jayde Mccartney MD [address] [place] [address] PCP - General Internal Medicine 05/19/22 documented as of this encounter
--- OUTSIDE RECORDS SUMMARY | 2025-04-08 20:06 | XMS_ITS | Encounter Summary ---
Author Organization [facility] Address [address] [place] [address] Care Team Providers Care Smoke Control Supervisor Name Role Phone Ame Holloway MD Primary Care Provide r [facility] Jayde Mccartney MD Primary Care Prov ider Encounter Details Date Type Department Care Team Description 06/11/2021 Telephone Rheumatology - [address] [address] Andrews Siddiqui PA Social History Tobacco Use Types Packs/Day Years [...] encounter Miscellaneous Notes * Telephone Encounter - King Aden M.A. - 06/11/2021 2:18 PM EDT Detailed voicemail left regarding message below. * Telephone Encounter - MARIANA Daley-C - 06/11/2021 12:52 PM EDT Baclofen 10 mg 3 times daily as needed for muscle spasm present in place of the tizanidine. She should know that the baclofen can cause increased sleepiness so she should not drive after taking the medication. A trial was sent to her pharmacy, if it works for her she can let us know and a longer prescription can be sent. Thank you. * Telephone Encounter - King Aden M.A. - 06/11/2021 9:36 AM EDT Patient states she is having difficulty sleeping given the amount of pain she is in. Her pains start on the left side of her neck radiating down to her left leg. She is also having a hard time lifting her arms. I tried scheduling a sooner appt but she prefers to keep her 06/27 appt due to work. * Telephone Encounter - Andrews Siddiqui PA-C - 06/11/2021 9:13 AM EDT I am not able to prescribe controlled substances over the phone, nor would I recommend the use of controlled substances for treatment of fibromyalgia related pain. How has the pain worsened? Is this affecting a single joint or is this more widespread? Depending on the type of pain we may be able to consider an alternative NSAID (previously taking ibuprofen 800 mg up to 3 times daily as needed for discomfort) or muscle relaxer (previously taking tizanidine 2 mg up to 3 times daily as needed for muscle spasm). Please let me know. * Telephone Encounter - King Aden M.A. - 06/11/2021 9:00 AM EDT Patient left a voicemail statin she is having a really bad fibro flare since last night. She is currently taking Tylenol 650 mg with minimal relief. She would like to be given something stronger for her pain. She mentioned tramadol as this was given to her once. According to her chart, this was given by PCPcare team back in May 2020. Her last visit was 02/27 and is scheduled for in office visit 06/27. Please review. [employer] printed documented in this encounter Plan of Treatment Not on file documented as of this encounter Visit Diagnoses Not on filedocumented in this encounter Care Teams Smoke Control Supervisor Relationship Specialty Start Date End Date Ame Holloway MD PCP - General Internal Medicine 02/05/21 Jayde Mccartney MD [address] [place] [id number] PCP - General Internal Medicine 05/19/22 documented as of this encounter
--- OUTSIDE RECORDS SUMMARY | 2025-04-08 20:06 | XMS_ITS | Encounter Summary ---
Author Organization [employer] [facility] Address [address] [place] [address] Care Team Providers Care Hand Chain Maker Name Role Phone She Devries MD Primary Care Provider Ame Vargas MD Primary Care Provide r Unavailable Jayde Mccartney MD Primary Care Prov ider Encounter Details Date Type Department Care Team Description 10/05/2016 Orders Only Gastroenterology - [address] [address] Marj Doss MD Pain of upper abdomen (Primary Dx) Social History Tobacco Use Types Packs/Day Years [...] on file documented as of this encounter Procedures Procedure Name Priority Date/Time Associated Diagnosis Comments CHG URINE TEST VISUAL COLOR CMPRSN METHS Routine 10/19/2016 2:05 PM EST Pain of upper abdomen documented in this encounter Results * URINE TEST-QUAL HCG (10/19/2016 2:05 PM EST) URINE PREG neg INTERNAL CONTROL VALID yes 10/19/2016 2:05 PM EST Marj Doss MD LAB documented in this encounter Visit Diagnoses Diagnosis Pain of upper abdomen- Primary Abdominal pain, other specified site documented in this encounter Care Teams Hand Chain Maker Relationship Specialty Start Date End Date She Devries MD PCP - General Internal Medicine 10/10/15 02/04/21 Ame Holloway MD PCP - General Internal Medicine 02/05/21 Jayde Mccartney MD [address] [place] [phone] PCP - General Internal Medicine 05/19/22 documented as of this encounter
--- OUTSIDE RECORDS SUMMARY | 2025-04-08 20:06 | XMS_ITS | Encounter Summary ---
Author Organization [facility] Address [address] [place] [address] Care Team Providers Care Optical Glass Etcher Name Role Phone She Devries MD Primary Care Provider Ame Vargas MD Primary Care Provide [facility] Jayde Mccartney MD Primary Care Prov ider Encounter Details Date Type Department Care Team Description 08/27/2020 [facility] Medical Records [address] [place] [address] Leona Delatorre MD [address] [place] [address] Social History Tobacco Use Types Packs/Day Years [...] have Coronavirus / COVID-19? No / Unsure 08/23/2020 9:37 AM EDT documented as of this encounter Plan of Treatment Not on file documented as of this encounter Visit Diagnoses Not on filedocumented in this encounter Care Teams Optical Glass Etcher Relationship Specialty Start Date End Date She Devries MD PCP - General Internal Medicine 10/10/15 02/04/21 Ame Holloway MD PCP - General Internal Medicine 02/05/21 Jayde Mccartney MD [address] [place] [id number] PCP - General Internal Medicine 05/19/22 documented as of this encounter
--- OUTSIDE RECORDS SUMMARY | 2025-04-08 20:06 | XMS_ITS | Clinical Summary ---
Author Organization [facility] Address [address] [place] [address] Care Team Providers Care Women'S Studies Lecturer Name Role Phone Jayde Mccartney MD Primary Care Prov ider Allergies Active Allergy Reactions Severity Noted Date Comments Aspirin Adult Low OTHER High 08/03/2012 Rapid heart beat Septra I.V. Swelling/Edema 07/27/2014 Codeine Rash/Dermatitis 07/18/2020 Doxycycline Rash/Dermatitis 07/02/2020 Naproxen Rash/Dermatitis 05/08/2016 Penicillins Rash/Dermatitis High 08/03/2012 Medications Medication Sig Dispensed Refills Start Date End Date Status DiphenhydrAMINE HCl (BENADRYL ALLERGY OR) Take by mouth daily as needed. 0 Active ketotifen (ALAWAY) 0.025 % ophthalmic solution Place 1 Drop into both eyes 2 times daily. 5 mL 1 08/17/2017 Active Blood Glucose Monitoring Suppl (FREESTYLE LITE) Device Use to check blood glucose daily as directed 1 Device 0 12/14/2019 Active FREESTYLE LANCETS Misc Use to check blood glucose daily as directed 100 Each 2 12/14/2019 Active ALBUTEROL SULFATE 108 (90 Base) MCG/ACT Aero Soln Take 2 Puffs by mouth every 4 hours as needed for Cough, Wheezing or Shortness of Breath. 42.5 g 0 02/27/2020 Active sertraline (ZOLOFT) 100 MG tablet Take 1 Tab by mouth daily. 0 Active lamotrigine (LAMICTAL) 25 MG tablet Take 25 mg by mouth 2 times daily. 0 07/30/2020 Active perphenazine 8 MG tablet Take 8 mg by mouth 2 times daily. 0 07/30/2020 Active fluticasone (FLONASE) 50 MCG/ACT nasal spray 2 Sprays by Nasal route daily. 1 Bottle 2 09/02/2020 Active Glucose Blood (FREESTYLE LITE) Strip Use to check blood glucose daily as directed 100 Strip 2 01/17/2021 Active fluticasone (FLOVENT HFA) 110 MCG/ACT inhaler Inhale 1 Puff into the lungs 2 times daily for 360 days. 1 Inhaler 2 01/20/2021 Active acetaminophen (TYLENOL) 650 MG CR tablet Take 1 Tab by mouth every 8 hours as needed for Pain. 90 Tab 3 02/19/2021 Active triamcinolone acetonide (KENALOG) 40 MG/ML injection Inject 1 mL into the articular space once for 1 dose. 1 mL 0 02/27/2021 Active hydrOXYzine (VISTARIL) 50 MG capsule Take 50 mg by mouth 3 times daily as needed. 0 Active Eszopiclone 3 MG Tab From MARY BUI 0 07/31/2021 Active sertraline (ZOLOFT) 50 MG tablet From MARY BUI KORINA 0 07/31/2021 Active ibuprofen (ADVIL,MOTRIN) 600 MG tablet TAKE 1 TABLET BY MOUTH DAILY NEEDED FOR PAIN OR FIBROMYALGIA OR FLARE UP 30 tablet 4 10/17/2021 Active tizanidine (ZANAFLEX) 4 MG capsule Take 1 capsule by mouth 3 times daily as needed for Muscle spasms (will cause sedation). 30 capsule 3 11/18/2021 Active levothyroxine 100 MCG tablet Take 1 Tablet by mouth daily. 30 Tablet 0 04/01/2022 Active metformin (GLUCOPHAGE-XR) 500 MG 24 hr tablet TAKE 1 TABLET BY MOUTH DAILY WITH BREAKFAST 15 Tablet 0 04/29/2022 Active Active Problems Problem Noted Date Fibromyalgia 08/20/2021 Iron deficiency anemia 04/17/2021 Overview: 03/2021- referred to hematology Lab test negative for COVID-19 virus 11/2019 Cervical radiculopathy 10/11/2015 Hypothyroid Depression Anxiety and depression Overview: Dr. Reed. [facility] Allergic rhinitis Insomnia Migraine Polycystic ovary disease Endometriosis Hyperlipidemia GERD (gastroesophageal reflux disease) Diarrhea Abdominal bloating Lactose intolerance Resolved Problems Problem Noted Date Resolved Date Obesity 12/26/2013 Immunizations Name Administration Dates Next Due COVID-19 (Moderna) 07/25/2021,06/27/2021 Influenza (> 6 Months) 09/07/2020,2014,10/31/2013, 008,12/01/2005 TD (STATE SUPPLIED FOR ADULT S AND CHILDREN) 12/03/2006 Tdap 12/09/2018 Varicella 07/06/2007,02/25/2007 Family History Medical History Relation Name Comments Arthritis Mother Rheumatoid Arthritis Other nephew Arthritis Sister Relation Name Status [...] file Not on file Not on file Last Filed Vital Signs Vital Sign Reading Time Taken Comments Blood Pressure 122/78 03/26/2022 3:52 PM EDT Pulse 76 03/26/2022 3:52 PM EDT Temperature 37 ??C (98.6 ??F) 08/20/2021 1:34 PM EDT Respiratory Rate 14 11/18/2021 8:05 AM EST Oxygen Saturation 99% 10/02/2021 9:36 AM EDT Inhaled Oxygen Concentration - - Weight 66.7 kg (147 lb) 03/26/2022 3:52 PM EDT Height 149.9 cm (4' 11 ) 03/26/2022 3:52 PM EDT Body Mass Index 29.69 03/26/2022 3:52 PM EDT Plan of Treatment Health Maintenance Due Date Last Done Comments CERVICAL CANCER SCREENING 1998 MAMMOGRAM 2017 DEPRESSION SCREEN 03/09/2018 03/09/2017, 10/11/2015 BASELINE HEALTH EXAM 40-64 03/09/201903/09, 08/25/2012, 08/03/2012 Covid-19 Vaccine (2022-2 4 season) 2024 07/25/2021, 06/27/2021 BMI CHECK/ADVISE 11/29/2024 02/14/2021, , 12/05/2020, Additional history exists CHOLESTEROL SCREENING 12/19/2024 12/19/2019 , 05/25/2019, 12/09/2018, Additional history exists INFLUENZA (Season Ended) 2025 020, 01/22/2015, 10/31/2013, Additional history exists DTAP/TDAP/TD (2 - Td or Tdap) 12/09/2028 12/09/2018, 12/03/2006 PNEUMOCOCCAL VACCINE FOR HIG H RISK PATIENTS (#1) 2042 Care Teams Women'S Studies Lecturer Relationship Specialty Start Date End Date Jayde Mccartney MD [address] [place] [id number] PCP - General Internal Medicine 05/19/22
--- OUTSIDE RECORDS SUMMARY | 2025-04-08 20:06 | XMS_ITS | Encounter Summary ---
Author Organization [facility] Address [address] [place] [address] Care Team Providers Care Manager Department Name Role Phone Damion Sagastume MD Primary Care Provider UnavailGrupo Lara MD Primary Care Provider Unavail able She Devries MD Primary Care Provider Unavaila Ame Kim MD Primary Care Provide r Unavailable Jayde Mccartney MD Primary Care Prov ider Reason for Visit * Reason Onset Date Comments radiology 11/16/2012 Encounter Details Date Type Department Care Team Description 11/16/2012 Telephone Orthopedics-[address] [address] Venkat Lacey PA radiology Social History Tobacco Use Types Packs/Day Years Used Date Smoking Tobacco: Never Alcohol Use Standard Drinks/Week Comments Not Asked 0 (1 standard drink = 0.6 oz pur e alcohol) Sex Assigned at Date Recorded Not on file Job Start Date Occupation Industry Not on file Not on file Not on file documented as of this encounter Miscellaneous Notes * Telephone Encounter - Damion Sagastume MD - 11/16/2012 10:19 AM EST Done. * Telephone Encounter - Yelitza Garibay - 11/16/2012 9:21 AM EST Please put an xray in for patient. Referral states: orthopedics. Reason for referral: carpal tunnel syndrome Has patient had surgery for this problem: No Priority: Next Available Thank you documented in this encounter Plan of Treatment Not on file documented as of this encounter Results * X-RAY EXAM OF WRIST, COMPLETE (12/21/2012 1:27 PM EST) Impressions Kirk Warren MD - 12/21/2012 5:31 PM EST : Right greater than left negative ulnar variance, predisposing the patient to radioulnar impaction. Narrative Kirk Warren MD - 12/21/2012 5:31 PM EST BILATERAL WRISTS, 3 VIEWS EACH HISTORY: Bilateral wrist/hand pain and swelling. No history of trauma. FINDINGS: There is no acute fracture, malalignment, joint effusion, soft tissue abnormality, or radiopaque foreign body in either wrist. The carpal bones are normally aligned. There is mild right greater than left negative ulnar variance. Procedure Note Kirk Warren MD - 12/21/2012 BILATERAL WRISTS, 3 VIEWS EACH HISTORY: Bilateral wrist/hand pain and swelling. No history of trauma. FINDINGS: There is no acute fracture, malalignment, joint effusion, soft tissueabnormality, or radiopaque foreign body in either wrist. The carpal bonesare normally aligned. There is mild right greater than left negative ulnarvariance. IMPRESSION: Right greater than left negative ulnar variance, predisposing the patientto radioulnar impaction. Damion Sagastume MD RADIOLOGY documented in this encounter Visit Diagnoses Diagnosis Wrist pain- Primary Pain in joint, forearm Wrist pain Pain in joint, forearm documented in this encounter Care Teams Manager Department Relationship Specialty Start Date End Date Damion Sagastume MD PCP - General Internal Medicine 07/05/12 11/28/14 Grupo Sagastume MD PCP - General Internal Medicine 12/04/14 10/09/15 She Devries MD PCP - General Internal Medicine 10/10/15 02/04/21 Ame Holloway MD PCP - General Internal Medicine 02/05/21 Jayde Mccartney MD [address] [place] [id number] PCP - General Internal Medicine 05/19/22 documented as of this encounter
--- OUTSIDE RECORDS SUMMARY | 2025-04-08 20:06 | XMS_ITS | Encounter Summary ---
Author Organization [facility] Address [address] [place] [address] Care Team Providers Care Research Contracts Supervisor Name Role Phone She Devries MD Primary Care Provider Ame Vargas MD Primary Care Provide r [facility] Jayde Mccartney MD Primary Care Prov ider Encounter Details Date Type Department Care Team Description 03/04/2018 Orders Only Medicine/Pediatrics - [address] [phone] Alvaro Jose PA-C Hematuria, unspecified type (Primary Dx) Social History Tobacco Use Types [...] documented as of this encounter Visit Diagnoses Diagnosis Hematuria, unspecified type- Primary documented in this encounter Care Teams Research Contracts Supervisor Relationship Specialty Start Date End Date She Devries MD PCP - General Internal Medicine 10/10/15 02/04/21 Ame Holloway MD PCP - General Internal Medicine 02/05/21 Jayde Mccartney MD [address] [place] [phone] PCP - General Internal Medicine 05/19/22 documented as of this encounter
--- OUTSIDE RECORDS SUMMARY | 2025-04-08 20:06 | XMS_ITS | Encounter Summary ---
Author Organization [employer] [facility] Address [address] [place] [address] Care Team Providers Care [facility] Name Role Phone Ame Holloway MD Primary Care Provide r [facility] Jayde Mccartney MD Primary Care Prov ider Encounter Details Date Type Department Care Team Description 10/12/2021 Release of Information Medical Records [address] [place] [id number] [place] [address] Social History Tobacco Use Types Packs/Day Years [...] on filedocumented in this encounter Care Teams [facility] Relationship Specialty Start Date End Date Ame Holloway MD PCP - General Internal Medicine 02/05/21 Jayde Mccartney MD [address] [place] [id number] PCP - General Internal Medicine 05/19/22 documented as of this encounter
--- OUTSIDE RECORDS SUMMARY | 2025-04-08 20:06 | XMS_ITS | Encounter Summary ---
Author Organization [facility] Address [address] [place] [address] Care Team Providers Care Squadron Worker Name Role Phone Ame Holloway MD Primary Care Provide r [facility] Jayde Mccartney MD Primary Care Prov ider Reason for Visit * Reason Comments E-prescribe Rx Request Encounter Details Date Type Department Care Team Description 03/23/2022 Refill Adult Medicine [address] [address] Ame Holloway MD E-prescribe Rx Request Social History Tobacco Use Types Packs/Day Years Used Date Smoking Tobacco: Never Smokeless Tobacco: Never Alcohol Use Standard Drinks/Week Comments No 0 (1 standard drink = 0.6 oz pur e alcohol) Sex Assigned at Date Recorded Not on file Job Start Date Occupation Industry Not on file Not on file Not on file COVID-19 Exposure Response Date Recorded In the last 10 days, have yo u been in contact with someone who was confirmed or suspected to have Coronavirus/COVID-19? No / Unsure 03/26/2022 3:47 PM EDT documented as of this encounter Miscellaneous Notes * Telephone Encounter - Regina Mcknight M.A. - 03/23/2022 2:00 PM EDT Delmis 08/20/21 No appointment made. Needs to pick new pcp. Lab Results Component Value Date HGBA1C 5.2 12/19/2019 MALBUR 18.8 09/20/2020 MALBCR 23.5 09/20/2020 CHOL 171 12/19/2019 LDL 108 12/19/2019 HDL 41 12/19/2019 TRIG 114 12/19/2019 GLU 90 12/19/2019 CREAT 0.75 11/18/2021 Patient needs appointment and new PCP * Telephone Encounter - Regina Mcknight M.A. - 03/23/2022 1:59 PM EDT Patient would like script to be: E-PRESCRIBED/FAXED TO PHARMACY WHEN WAS THE PATIENT'S LAST APPOINTMENT IN ADULT MEDICINE? 08/20/21 WHEN WAS THE LAST TIME THE PATIENT SAW THEIR PCP? Same as above Does patient have an upcoming appointment? No-unable to reach left [facility] to call for appointment due to refill request. Appt due NOHELIA needs to choose new PCP (THE MEDICATION REQUESTED IS ON THE MED LIST ABOVE) All of the medications requested were on the CURRENT MEDS list Did you check the Pharmacy information above?: NO Patient wants: 90 -day supply Is this a mail order prescription request ? NO If the refill is from a FAXED refill request what is the RX # listed on the fax? N/A Patients current insurance carrier is: Payor: [employer] [facility] [employer] MCR / Plan: [facility] CARE ALLIANCE / Product Type: HMO [id number] documented in this encounter Plan of Treatment Not on file documented as of this encounter Visit Diagnoses Not on filedocumented in this encounter Care Teams Squadron Worker Relationship Specialty Start Date End Date Ame Holloway MD PCP - General Internal Medicine 3/10/21 6 /20/22 Jayde Mccartney MD [address] [place] [id number] PCP - General Internal Medicine 05/19/22 documented as of this encounter
--- OUTSIDE RECORDS SUMMARY | 2025-04-08 20:06 | XMS_ITS | Encounter Summary ---
Author Organization [facility] Address [address] [place] [address] Care Team Providers Care Handbag Parts Cutter Name Role Phone Damion Sagastume MD Primary Care Provider UnavailGrupo Lara MD Primary Care Provider Unavail able She Devries MD Primary Care Provider Unavaila Ame Kim MD Primary Care Provide r Unavailable Jayde Mccartney MD Primary Care Prov ider Reason for Visit * Reason Onset Date Comments REFERRAL 11/09/2012 Encounter Details Date Type Department Care Team Description 11/09/2012 Telephone Adult Medicine - [address] [id number] Damion Sagastume MD REFERRAL Social History Tobacco Use Types Packs/Day Years Used Date Smoking Tobacco: Never Alcohol Use Standard Drinks/Week Comments Not Asked 0 (1 standard drink = 0.6 oz pur e alcohol) Sex Assigned at Date Recorded Not on file Job Start Date Occupation Industry Not on file Not on file Not on file documented as of this encounter Miscellaneous Notes * Telephone Encounter - Jany Gates - 11/09/2012 10:35 AM EST Pt was put on the Ortho referrals report for carpal tunnel; pt will need to have xray before being seen in Ortho; please put in order. documented in this encounter Plan of Treatment Not on file documented as of this encounter Visit Diagnoses Not on filedocumented in this encounter Care Teams Handbag Parts Cutter Relationship Specialty Start Date End Date Damion Sagastume MD PCP - General Internal Medicine 07/05/12 11/28/14 Grupo Sagastume MD PCP - General Internal Medicine 12/04/14 10/09/15 She Devries MD PCP - General Internal Medicine 10/10/15 02/04/21 Ame Holloway MD PCP - General Internal Medicine 02/05/21 Nyla Shultz, Jayde Byrd MD [address] [place] [id number] PCP - General Internal Medicine 05/19/22 documented as of this encounter
--- OUTSIDE RECORDS SUMMARY | 2025-04-08 20:06 | XMS_ITS | Data Portability ---
Author Organization [facility] Address [address] [place] [phone] Care Team Providers Care Greeting Card Editor Name Role Phone HIM CCA OTHER Assessment Encounter Date Assessment Date Assessment LastModified by Organization Details LastModified Time 08/25/2022 08/25/2022 I have reviewed and agree with the Assessment and Plan as documented by the Gas Plumbing Inspector. I provided real -time medical direction via phone for this encounter, and was available for additional phone based assistance as needed. Patient given the opportunity to ask questions. [email or web address] Not available 08/25/2022 13:32:12 Plan of Treatment Reminders Order Date Submit Date Provider Last Modified By Organization Details Last Modified Time Details Appointments None recorded. Lab culture, urine 2024 025 [facility] (Centralized Electronic Ordering - All Locations), Patient Can Go To The Location Of Their Choice, [id number] 5 14:06:19 BMP, serum or plasma 2024 025 [facility], [address] [place] [address], [phone] 5 21:19:06 Referral None recorded. Procedures None recorded. Surgeries None recorded. Imaging None recorded. Medication Orders lactated Ringers intravenous solution 2024 025 gbaci Not available 14:11:20 Cipro 250 mg tablet 2024 025 gbaci Not available 14:11:20 metronidazo le 250 mg tablet 2024 025 gbaci Not available 14:12:22 Cipro 500 mg tablet 2024 025 ROCKY Not available 5 14:13:14 metronidazo le 500 mg tablet 2024 025 ROCKY Not available 14:13:03 tobramycin 0.3 % eye drops 2021 022 ROCKY Not available 13:37:27 Patient TargetsNo targets recorded. Patient InstructionsNo instructions recorded. Reason for Referral None Reported. Results Created Date Observation Date Name Description Value Unit Range Abnormal Flag Note LastModifiedBy Organization Detail LastModifiedTime 01/20/2001/22/2025 NO URINE RECEI KYA no urine received TNP Test not perfo rmed. Gibson top urine tube is for urine cultu re and is not suita ble for urina lysis . TEST: [id number] 8 Urina lysis , Routi ne Not Available [facility] ([facility]) [address] [facility], [place], [address], 01/23/2025 16:06:09 01/20/2001/21/2025 NTI URINE TUBE (GIBSON ) nti urine tube (gibson) Commen t Dear Pennie r, The requi sitio n we recei kya for the above patie nt has no test indic ated on the reque st form for one or more of the speci mens submi tted. [place] Code of [place] Regul ation s requi res a writt en and julia d reque st be forwa rded to the testi ng labor atory follo wing the verba l order of a labor atory test. Pleas e compl ete the follo wing and fax to [phone] to exped ite testi ng. Requi red [...] is requi red on this speci men, pleas e conta ct the [facility] Clien t Inqui ry/Te chnic al Servi shaheen Depar tment to obtai n a Reque st for Writt en Autho rizat ion Form. Not Available [facility] ([facility]) [address] [place], [address], 01/23/2025 16:06:10 01/20/20 25 01/25/2025 URINE CULTU RE, ROUTI NE urine culture, routine COMMEN T Test not perfo rmed due to the age of this speci men. Not Available [facility] ([facility]) [address] [place], [address], 01/25/2025 14:06:19 01/20/20 25 01/25/[address] PROBL EM request problem COMMEN T Test not perfo rmed due to the age of this speci men. TEST: 20881 7 Urine Cultu re, Routi ne Not Available [facility] ([facility]) [address] [place], [address], 01/25/2025 14:06:20 01/20/20 25 02/15/2025 WRITT EN AUTHO RIZAT ION written authorizatio n Commen t No Writt en Autho rizat ion Recei kya. Not Available [facility] ([facility]) [address] [place], [address], 02/15/2025 12:05:47 Result Notes None recorded. Medical Equipment None Reported. Allergies Allergen ID Allergen Name Allergen Category Reaction Reaction Severity Criticality Documentation Date Start Date Code Code System Note Provider Name and Address Organization Details Recorded Time 1101 Product containin g penicilli n (product) medicatio n Not available Not available Not available 08/25/2022 20805 8001 SNOMED Not Available [facility] - production 4 03:37:54 1102 Iodinated contrast media (substanc e) medicatio n Not available Not available Not available 08/25/2022 06300 2003 SNOMED She Christie MD [address] [facility],[address], [place], [phone], [facility], [facility] 2 13:30:59 1103 aspirin medicatio n Not available Not available Not available 08/25/2022 1191 RxNorm Not Available [facility] - production 4 03:37:54 47842 Bactrim medicatio n Not available Not available Not available 01/20/2025 29062 9 RxNorm SHIN CHARLES MD [address] [place] [address],[address], [place], [address], [facility] [facility] [employer] 5 19:22:09 56476 naproxen medicatio n Not available Not available Not available 01/20/2025 7258 RxNorm SHIN CHARLES MD [address] [place] [address],[address], [place], [address], [place] [facility] 5 19:22:29 08807 codeine medicatio n Not available Not available Not available 01/20/2025 2670 RxNorm SHIN CHARLES MD [address] [place] [address],[address], [place], [address], [facility] 5 19:22:54 54194 doxycycli ne Not available Not available Not available Not available 01/20/2025 3640 RxNorm SHIN CHARLES MD [address] [place] [address],[address], [place], [address], [facility] [facility] 5 19:23:14 65446 wheat gluten extract food Not available Not available Not available 01/20/2025 37122 81 RxNorm SHIN CHARLES MD [address] [facility],[address], [place], [address], JANY IBANEZ 5 19:23:21 Medications Name Sig Start Date Stop [...] Not Available Not Available No t Available clindamycin HCl 150 mg capsule TAKE 3 CAPSULES BY MOUTH EVERY 8 HOURS FOR 7 DAYS active Not Available [...] Not Available Not Available N ot Available tramadol 50 mg tablet TAKE 1 [...] % 98 % 18 /min 96 /min 43202.7 6 g 141 mm[Hg] 86 mm[Hg] Not Available [facility] 5 19:03:51 Date Recorded Body temperature Oxygen saturation Oxygen saturation in Arterial blood by Pulse oximetry Heart rate Respiratory rate Systolic blood pressure Diastolic blood pressure Provider Name and Address Organization Details Last Updated DateTime 2 98.1 [degF] 98 % 98 % 93 /min 18 /min 139 mm[Hg] 86 mm[Hg] Not Available [facility] 2 13:16:36 Social History None recorded. Functional [...] 4247 She Christie MD [facility] - [facility] [address] [place] [phone] 08/25/2022 13:16:20 08/31/2022 13:49:47 Acute conjunctivitis 73693720 H10.33 Cannot stain eye w/ fluoroscei n, [...] SHe verbalized understand ing to the medic [id number] SHIN CHARLES MD Main - [facility] [address] [place] [address] 01/20/2025 19:03:50 01/22/2025 17:12:12 Left upper quadrant pain 753822688 R10.12 Evaluation in the field was performed by my pattern maker programer colleague, as noted above, I provided real-time direction and supervisio n for this visit. The evaluation revealed 49-year-ol d female presenting with LUQ abdominal pain and diarrhea since Wednesday, following red meat consumptio n. Reports nausea vomiting and diarrhea yesterday, which have subsided.Marilyn wagner visited the ED but left due to [...] Recorded Advance Directives Directive None Recorded Payers Insurance Date Sequence Insurance Name Policy Number Policy Obando Covered Member ID Obando Member ID Guarantor Name 03/30/2024 1 [facility] - DOS PRIOR TO 2023 - DUAL ELIGIBLE (MEDICARE REPLACEMENT/AD VANTAGE - HMO) Noemi Blas [id number] Noemi Blas 01/23/2025 1 [facility] - DOS ON OR AFTER 2023 - DUAL ELIGIBLE - INTERMEDIATE OPTIONS AND ONE CARE (MEDICARE REPLACEMENT/AD VANTAGE - HMO) Noemi Blas [id number] Noemi Blas Notes Date Note Type Note Provider Name and Address Organization Details Recorded Time 08/25/2022 text/html HPI: *Jesus's primary language is Yoruba, but her speaks Montserratian fluently. Please call Ciaran when able to give ETA at [phone].* Jesus's , Ciaran believes this 46 y.o. F has conjunctivitis, stating both of her eyes have appeared red w/ yellowish discharge since yesterday. Chazr woke up w/ eyelashes stuck together this am. She c/o eyes feeling irritated and sensitive to light. No recent fevers or other acute s/sx. Mbr tried to go to [facility] yesterday, [...] .................... .................... .................... .................... .................... .................... . Gas Plumbing Inspector Note: Pt states yesterday she started with some bilateral eye irritation. Today she woke up with yellow discharge. Pt states her eyes are painful and itchy. Pt states she has had this before. [facility] contacted. Prescription called into preferred pharmacy. Red flags discussed .................... .................... .................... .................... .................... .................... .................... . Disposition: FulfilledSEGMD: as above- no fevers/ no URI s/s- denies headache/ n/v She Christie MD [address] [facility], [place], [address], [place] FABRICE ADKNISAirwoot 08/25/2022 13:39:32 01/20/2025 text/html CRC Nurse Triage [...] Persistent Mental Illness (SPMI) PMH Reviewed at 01/20/2025 Allergies Reviewed at 01/20/2025:54 Comments: Member calls [...] emergency treatment if needed. Rudolph Segura RN Gas Plumbing Inspector Organization Information for Mire[facility] Ross Business Legal Name: [employer]? Address: [address] [place] [id number], Spray Painting Machine Operator: Mateusz Araujo MD CLIA No.: [id number] Gas Plumbing Inspector POC Test Results from [facility]rie[facility] Ross iSTAT Chem8+ (19:46:03) Na: 139 mEq/L K: 3.9 mEq/L Cl: 107 mEq/L iCa: 1.21 mmol/L TCO2: 24 mmol/L Glu: 96 mg/dL BUN: 8 mg/dL Crea: 0.8 mg/dL Hct: 26 % Hb: 8.8 g/dL A Attachments uploaded as part of this test result can be found under Documents section. .................... .................... .................... .................... .................... .................... .................... . Gas Plumbing Inspector Note From Mireille Ross: [facility] makes pt contact. She is found seated on the sofa in her living room. She turns and smiles and makes eye contact w/ [facility]. She is sitting bolt upright w/ her back supported w/ a pillow and her hands resting in her lap. Her skin is pale, warm, and dry. No stridor or sonorous respirations are noted, no facial droop or one sided weakness are observed, and she is not bleeding anywhere. Pt is Primarily Yoruba-speaking only, but is on scene to provide [...] pain. says she was crying right before [facility] arrival. No blood is reported in emesis [...] and wait after several hours each time. [facility] obtains vital signs and pt is assessed. [...] to be performed due to AZO supplementation. [facility] contacts [facility] and discusses the above. [facility] order urine culture, bmp, and 1L LR IV as well as 500mg cipro and 500mg metronidazole PO. [facility] administers PO medications. A 20ga IV is established in the L AC and blood is drawn for bmp. IV is flushed and locked w/ a saline lock and secured. 1L LR is administered wide open. Pt tolerated fluids well. IV is removed and pressure bandage is applied w/ 2x2 and coban. [facility] ensures pt has no further questions and informs of red flag s/s. Pt and thank [facility] for coming. [facility] is clear. Report completed by SHARON Ross [id number]. [facility] Lab Orders: culture, urine: Performed BMP, serum or plasma: Performed .................... .................... .................... .................... .................... .................... .................... . [facility] Consulted: Shin Charles .................... .................... .................... .................... .................... .................... .................... . Disposition: Gómez CHARLES MD [address] [facility],[address], [place], [address], FABRICE - JANY ADKINS 01/21/2025 14:40:42 OBGyn Episode No OBEpisode recorded.
--- OUTSIDE RECORDS SUMMARY | 2025-04-08 20:06 | XMS_ITS | Encounter Summary ---
Author Organization [facility] Address [address] [place] [address] Care Team Providers Care Drill Runner Helper Name Role Phone She Devries MD Primary Care Provider Ame Vargas MD Primary Care Provide r Jayde Mckeon MD Primary Care Prov ider Reason for Visit * Reason Comments E-prescribe Rx Request Encounter Details Date Type Department Care Team Description 05/08/2016 Refill BUSINESS ANALYST SALES OPERATIONS - [address] [address] Suma Day MD E-prescribe Rx Request Social History Tobacco [...] encounter Miscellaneous Notes * Telephone Encounter - Malou Munson R.N. - 05/11/2016 8:31 AM EDT Pt needs annual * Telephone Encounter - Dahiana Guardado M.A. - 05/08/2016 1:32 PM EDT Last ov 05/08/16 next appt. 08/07/16 * Telephone Encounter - Aruna Muniz - 05/08/2016 1:27 PM EDT Patient would like script to be: E-PRESCRIBED/FAXED TO PHARMACY WHEN WAS THE PATIENT'S LAST APPOINTMENT IN ADULT MEDICINE? 05/08/16 WHEN WAS THE LAST TIME THE PATIENT SAW THEIR PCP? 02/05/16 Does patient have an upcoming appointment? 08/07/16 (THE MEDICATION REQUESTED IS ON THE MED LIST ABOVE) All of the medications requested were on the CURRENT MEDS list Did you check the Pharmacy information above?: YES Patient wants: 30 -day supply Is this a mail order prescription request ? NO Patients current insurance carrier is: [place] / Product Type: MEDICARE [id number] documented in this encounter Plan of Treatment Not on file documented as of this encounter Visit Diagnoses Not on filedocumented in this encounter Care Teams Drill Runner Helper Relationship Specialty Start Date End Date She Devries MD PCP - General Internal Medicine 10/10/15 02/04/21 Ame Holloway MD PCP - General Internal Medicine 02/05/21 Jayde Mccartney MD [address] [place] [id number] PCP - General Internal Medicine 05/19/22 documented as of this encounter
--- OUTSIDE RECORDS SUMMARY | 2025-04-08 20:06 | XMS_ITS | Encounter Summary ---
Author Organization [facility] Address [address] [place] [address] Care Team Providers Care Pelletizer Name Role Phone She Devries MD Primary Care Provider Ame Vargas MD Primary Care Provide r [facility] Jayde Mccartney MD Primary Care Prov ider Encounter Details Date Type Department Care Team Description 03/10/2018 [facility] Medical Records [address] [place] [address] Abbey Zapien Social History Tobacco Use Types Packs/Day Years [...] on filedocumented in this encounter Care Teams Pelletizer Relationship Specialty Start Date End Date She Devries MD PCP - General Internal Medicine 10/10/15 02/04/21 Ame Holloway MD PCP - General Internal Medicine 02/05/21 Jayde Mccartney MD [address] [place] [address] PCP - General Internal Medicine 05/19/22 documented as of this encounter
--- OUTSIDE RECORDS SUMMARY | 2025-04-08 20:06 | XMS_ITS | Encounter Summary ---
Author Organization [facility] Address [address] [place] [address] Care Team Providers Care Automotive General Manager Name Role Phone She Devries MD Primary Care Provider Ame Vargas MD Primary Care Provide r [facility] Jayde Mccartney MD Primary Care Prov ider Reason for Visit * Reason Onset Date Comments Faxed Order 12/09/2015 [facility] Encounter Details Date Type Department Care Team Description 12/09/2015 Telephone Medicine/Pediatrics - [address] [address] She Devries MD Faxed Order ([facility]) Social History Tobacco Use Types Packs/Day Years [...] encounter Miscellaneous Notes * Telephone Encounter - She Devries MD - 12/09/2015 5:17 PM EST Signed form * Telephone Encounter - Cris Knowles M.A. - 12/09/2015 4:51 PM EST Please sign and return. Thank You. * Telephone Encounter - Saskia Rollins - 12/09/2015 4:36 PM EST [facility] faxed a plan of care for She Garcia Amberly to review, sign, date and fax back To niraj sullivan documented in this encounter Plan of Treatment Not on file documented as of this encounter Visit Diagnoses Not on filedocumented in this encounter Care Teams Automotive General Manager Relationship Specialty Start Date End Date She Devries MD PCP - General Internal Medicine 10/10/15 02/04/21 Ame Holloway MD PCP - General Internal Medicine 02/05/21 Jayde Mccartney MD [address] [place] [id number] PCP - General Internal Medicine 05/19/22 documented as of this encounter
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
--- OUTSIDE RECORDS SUMMARY | 2025-04-08 20:06 | XMS_ITS | Encounter Summary ---
Author Organization [facility] Address [address] [place] [address] Care Team Providers Care Project Manager Entertainment And Media Name Role Phone She Devries MD Primary Care Provider Ame Vargas MD Primary Care Provide r [facility] Jayde Mccartney MD Primary Care Prov ider Encounter Details Date Type Department Care Team Description 12/09/2015 Solar System Installer Report Medical Records [address] [place] [address] Social History Tobacco Use Types Packs/Day Years [...] on filedocumented in this encounter Care Teams Project Manager Entertainment And Media Relationship Specialty Start Date End Date She Devries MD PCP - General Internal Medicine 10/10/15 02/04/21 Ame Holloway MD PCP - General Internal Medicine 02/05/21 Jayde Mccartney MD [address] [place] [id number] PCP - General Internal Medicine 05/19/22 documented as of this encounter
--- OUTSIDE RECORDS SUMMARY | 2025-04-08 20:06 | XMS_ITS | Encounter Summary ---
Author Organization [facility] Address [address] [place] [address] Care Team Providers Care Teaseler Name Role Phone She Devries MD Primary Care Provider Ame Vargas MD Primary Care Provide r [facility] Jayde Mccartney MD Primary Care Prov ider Encounter Details Date Type Department Care Team Description 06/19/2019 Orders Only Medical Records [address] [place] [id number] She Devries MD Social History Tobacco Use [...] Procedure Name Priority Date/Time Associated Diagnosis Comments OUTSIDE STRESS ECHO Routine 06/13/2019 documented in this encounter Results * OUTSIDE STRESS ECHO (06/13/2019) She Devries MD CARDIOLOGY documented in this encounter Visit Diagnoses Not on filedocumented in this encounter Care Teams Teaseler Relationship Specialty Start Date End Date She Devries MD PCP - General Internal Medicine 10/10/15 02/04/21 Ame Holloway MD PCP - General Internal Medicine 02/05/21 Jayde Mccartney MD [address] [place] [id number] PCP - General Internal Medicine 05/19/22 documented as of this encounter
[2025-04-08 21:04] LABS: Basophils Percent Auto 0.3 % (0-2); Eosinophils Absolute Auto 0.1 X10*3/uL (0.0-0.4); Eosinophils Percent Auto 1.7 % (0-4); Hematocrit 29.7 % (37.0-47.0); Hemoglobin 8.6 g/dl (12.0-16.0); Imm Gran Abs Auto 0.03 X10*3/uL (0.00-0.03); Imm Gran Pct Auto 0.5 % (0.0-0.4); Lymphocytes Percent Auto 33.4 % (20-40); MANUAL DIFF FLAG SCAN; Mean Corpuscular Hemoglobin 19.2 pg (27.0-33.0); Mean Corpuscular Volume 66.1 fL (80.0-98.0); Monocytes Absolute Auto 0.3 X10*3/uL (0.1-1.2); Monocytes Percent Auto 5.4 % (2-11); Neutrophils Absolute Auto 3.5 x10*3/uL (2.0-8.3); Neutrophils Percent Auto 58.7 % (45-73); PLT CLUMP 1; Red Blood Count 4.49 X10*6/uL (4.20-5.50); SCAN SMEAR FLAG 1
[2025-04-08 21:11] LABS: Alanine Aminotransferase 18 U/L (0-31); Albumin Level 4.2 g/dL (3.5-5.0); Alkaline Phosphatase 97 U/L (39-117); Anion Gap 15 (12-20); Aspartate Amino Transferase 33 U/L (5-31); Bilirubin Total 0.7 mg/dL (0.0-1.0); Blood Urea Nitrogen 11 mg/dL (9-16); Calcium 9.2 mg/dL (8.4-10.2); Carbon Dioxide 22 mmol/L (22-29); Chloride 109 mmol/L (96-108); Creatinine Clr Calc Pharmacy 71.3; Estimated Glomerular Filt Rate > 60; Ethanol < 10 mg/dL; Glucose Random 90 mg/dL (60-115); Potassium 3.8 mmol/L (3.3-5.1); Sodium 142 mmol/L (135-145); Total Protein 7.6 g/dL (6.5-8.0)
[2025-04-08 21:14] LABS: Acetaminophen LAB < 3 mcg/mL (<30); Salicylate < 5.0 mg/dL (15-30)
[2025-04-08 21:21] LABS: Mean Platelet Volume 9.6 fL (9.4-12.3); Platelet Count 422 X10*3/uL (160-400); SLIDE REVIEW VERIFIED
--- NOTE | 2025-04-08 21:54 | ED_ITS ---
HPI - General Adult General Chief complaint: Psychiatric Symptoms Stated complaint: Si w/ plan Time Seen by Provider: 04/08/25 19:11 Source: patient, RN notes reviewed, old records reviewed and shotblast operator Mode of arrival: EMS Limitations: language barrier History of Present Illness ED Provider: Thi HPI narrative: 49-year-old female with past medical history significant for bipolar disorder presents for evaluation of depression. The patient reports that she has had increased life stressors and she admits to taking increased doses of her medications yesterday to help me sleep, not to harm myself. the patient admits to taking 7 total pills of her Lamictal and Seroquel when she admits to overdosing. She follows with N in the community and denies suicidal ideation the patient was evaluated in the community and sent here for further evaluation. I spoke to the care team who received an expect from the patient's outpatient [facility] providers the official outpatient evaluation is not yet available to be viewed, however per outpatient notes, the patient has been continually overdosing on her medications she was evaluated 2-3 times in the last couple of days and has been lethargic every single time. Related Data Home Medications ?Medication ?Instructions ?Recorded ?Confirmed lamotrigine 200 mg tablet 200 mg PO DAILY 04/09/25 04/09/25 levothyroxine 112 mcg tablet 112 mcg PO DAILY@0600 04/09/25 04/09/25 metformin 500 mg tablet 500 mg PO DAILY 04/09/25 04/09/25 Previous Rx's ?Medication ?Instructions ?Recorded quetiapine 100 mg tablet 100 mg PO BEDTIME 7 days #7 tabs 04/12/25 Allergies Allergy/AdvReac Type Severity Reaction Status Date / Time Penicillins Allergy Severe Difficulty Verified 04/08/25 19:54 Breathing, swelling aspirin [ASA] Allergy Intermediate Rash, Verified 04/08/25 19:54 Rapid Heart Beat sulfamethoxazole Allergy Mild Palpitation Verified 04/08/25 19:54 [From BACTRIM] s trimethoprim [From BACTRIM] Allergy Mild Palpitation Verified 04/08/25 19:54 s Sulfa (Sulfonamide Allergy Unknown Swelling Verified 04/08/25 19:54 Antibiotics) and Edema gluten Allergy Unknown Verified 04/08/25 19:54 oxcarbazepine [OXCARBAZEPINE] AdvReac Unknown high blood Verified 04/08/25 19:54 pressure Review of Systems 2 Constitutional: Constitutional: Denies body ache(s), Denies chills, Denies fever(s) and Denies headache(s) Eyes: Eyes: Denies blurry vision ENT: Denies dysphagia, Denies vertigo, Denies dizziness and Denies headache(s) Cardiovascular: Cardiovascular: Denies chest pain and Denies dyspnea Respiratory: Respiratory: Denies cough and Denies dyspnea Gastrointestinal: Gastrointestinal: Denies abdominal pain, Denies dysphagia, Denies nausea and Denies vomiting Musculoskeletal: Musculoskeletal: Denies back pain Integumentary/Breasts: Skin/Breast: Denies rash Neurologic: Denies vertigo, Denies dizziness and Denies headache(s) Psychiatric: Psychiatric: Reports anxiety, Reports depression, Denies visual hallucinations, Denies homicidal ideation and Denies suicidal ideation PMFSH Past Medical History Medical History (Updated 04/10/25 @ 17:08 by Brittanie Stone NP) Fibromyalgia, primary PCO (polycystic ovaries) Anxiety Hypothyroidism Surgical History No history of previous surgery Family History Family History Mother Hypertension Thyroid disease Father Mental health disorder Sister Ovarian cancer Social History Social History Household Members: None Housing: Apartment Do you presently have visiting nurse or other home services: Yes (Per crisis eval.) Alcohol intake: current Alcohol intake frequency: holidays/special occasions only Patient Tobacco Use Status: Never used Tobacco service: No Current occupational status: employed and retired Current occupation: [employer] Sexual orientation: Straight/Heterosexual Physical Exam ED Vital Signs: Vital Signs - 24 hr 04/09/25 18:12 04/10/25 06:00 04/10/25 08:31 Temperature 97.9 F 97.4 F 98.4 F Pulse Rate 95 97 60 Respiratory Rate 20 16 15 Blood Pressure 158/82 H 111/74 135/78 Pulse Oximetry 100 100 99 Oxygen Delivery Method Room Air Room Air Room Air BMI result Body Mass Index 31.9 Const General: healthy appearing, comfortable, no acute distress, alert and awake Nutritional Appearance: well nourished Orientation/consciousness: patient oriented x3 HENMT Head: Yes normocephalic and Yes atraumatic Throat: Yes posterior oropharynx normal Eyes Eyelids: Yes eyelids normal Conjunctivae: conjunctivae normal Sclerae: sclerae normal Corneas: corneas normal Pupils: Equal, round and reactive pupils present EOM: EOMs intact bilaterally Neck Neck: Yes full ROM Resp Effort & Inspection: normal respiratory effort, able to speak in complete sentences and not labored Skin General skin exam: elasticity normal Neuro General: patient oriented x3 Cranial nerves: Yes CN's II-XII intact bilaterally, Yes Equal, round and reactive pupils present and Yes Bilaterally intact EOM present Cognition (Neuro): normal cognition Extrem Other: Moving all extremities well without any obvious deformities Psych Appearance: grossly normal Mental Status: mental status grossly normal Speech and movement: Normal speech and movement present Affect: normal affect Attitude: cooperative Thought process: Normal thought process present Thought content: Normal thought content present Insight: Fair insight present (Psych) Judgement: Fair judgement present (Psych) Course Reevaluation(s) Reevaluation #1: Time: 04:02 Date: 04/09/25 Provider: MARIANA Landa Patient in physician observation for psychiatric evaluation.? No acute events reported overnight. No current complaints. VS stable.? Patient is in bed search status/pending CARE team evaluation. Will continue to monitor. Reevaluation #2: Time: 15:34 Date: 04/09/25 Provider: MARIANA Dang Patient in physician observation for psychiatric evaluation.? No acute events reported overnight. No current complaints. VS stable.? Patient is in bed search status/pending CARE team evaluation. Will continue to monitor. Reevaluation #3: Time: 09:31 Date: 04/10/25 Provider: Ab Marcus MD Patient in physician observation for psychiatric evaluation.? No acute events reported overnight. No current complaints. VS stable.? Patient is in bed search status/pending CARE team evaluation. Will continue to monitor. Time: 09:31 Additional Reevaluation(s): Time: 12:32 Date: 04/10/25 Provider: Mk Barron MD Physician observation ended at 12:32. Patient to be admitted as inpatient to psychiatry. Medications Administered Discontinued Medications Generic Name Dose Route Start Last Admin Trade Name Freq PRN Reason Stop Dose Admin Acetaminophen 650 mg 04/10/25 15:43 04/11/25 13:49 Acetaminophen 325 Mg Tablet PO 650 mg Q6H PRN Administration Headache/Pain, Scale 1-10 Lamotrigine 200 mg 04/11/25 09:00 04/13/25 08:55 Lamotrigine 100 Mg Tablet PO 200 mg DAILY EDISON Administration Levothyroxine Sodium 112 mcg 04/11/25 06:00 04/13/25 06:51 Levothyroxine Sodium 112 Mcg Tablet PO 112 mcg DAILY@0600 EDISON Administration Metformin HCl 500 mg 04/11/25 09:00 04/13/25 08:55 Metformin Hcl 500 Mg Tablet PO 500 mg DAILY EDISON Administration Nicotine 21 mg 04/11/25 09:00 04/11/25 08:37 Nicotine 21 Mg Patch.Td24 TRANSDERMA Not Given DAILY EDISON Quetiapine Fumarate 25 mg 04/10/25 21:00 04/11/25 00:44 Quetiapine Fumarate 25 Mg Tablet PO Not Given BID EDISON Quetiapine Fumarate 50 mg 04/10/25 21:00 04/10/25 22:04 Quetiapine Fumarate 50 Mg Tablet PO Not Given BEDTIME EDISON Quetiapine Fumarate 25 mg 04/11/25 09:00 04/11/25 08:38 Quetiapine Fumarate 25 Mg Tablet PO Not Given BID@0900,1500 [facility] Quetiapine Fumarate 100 mg 04/11/25 21:00 04/12/25 21:14 Quetiapine Fumarate 100 Mg Tablet PO 100 mg BEDTIME EDISON Administration Medical Decision Making Medical Decision Making [facility] Narrative: 49-year-old female with history of bipolar disorder presents for evaluation of increasing depression. She denies any suicidality, however she admits to intentionally overdosing in an attempt to get sleep. I spoke to our care team who was awaiting the complete outpatient evaluation performed in the community put anticipate a recommendation of inpatient psychiatric care. the patient is currently calm, cooperative. she has a stable microcytic anemia going back to 2021. No significant chemistry abnormalities.. The patient is medically cleared, awaiting official care team recommendations Differential Diagnosis Differential Diagnoses: The differential diagnosis associated with the presentation includes depression Bipolar disorder Ronel Major depressive episode Intentional overdose Admission/Observation Consideration of admission/observation: Escalation of care including admission/observation considered Lab Data [facility] Lab Attestation statement: I reviewed the patient's lab results. as above 04/08/25 20:51 04/11/25 07:43 Labs: Lab Results 04/08/25 04/10/25 Range/Units 20:51 06:24 WBC 6.0 (4.8-10.8) X10*3/uL RBC 4.49 (4.20-5.50) X10*6/uL Hgb 8.6 L (12.0-16.0) g/dl Hct 29.7 L (37.0-47.0) % MCV 66.1 L (80.0-98.0) fL MCH 19.2 L (27.0-33.0) pg MCHC 29.0 L (31.0-35.0) g/dl RDW 19.0 H (11.0-16.0) % Plt Count 422 H (160-400) X10*3/uL MPV 9.6 (9.4-12.3) fL Immature Gran % (Auto) 0.5 H (0.0-0.4) % Neut % (Auto) 58.7 (45-73) % Lymph % (Auto) 33.4 (20-40) % Lamoure % (Auto) 5.4 (2-11) % Eos % (Auto) 1.7 (0-4) % Baso % (Auto) 0.3 (0-2) % Lymph # (Auto) 2.0 (1.2-4.9) X10*3/uL [place]re # (Auto) 0.3 (0.1-1.2) X10*3/uL Eos # (Auto) 0.1 (0.0-0.4) X10*3/uL Baso # (Auto) 0.0 (0.0-0.2) X10*3/uL Abs Immat Gran (auto) 0.03 (0.00-0.03) X10*3/uL Absolute Neuts (auto) 3.5 (2.0-8.3) x10*3/uL Absolute Nucleated RBC 0.000 (0.0-0.012) X10*3/uL Nucleated RBC % (auto) 0.0 (0.0-0.2) /100WBC Smear Tech's Comments VERIFIED Sodium 142 (135-145) mmol/L Potassium 3.8 (3.3-5.1) mmol/L Chloride 109 H (96-108) mmol/L Carbon Dioxide 22 (22-29) mmol/L Anion Gap 15 (12-20) BUN 11 (9-16) mg/dL Creatinine 0.84 (0.5-1.4) mg/dL Estim Creat Clear Calc 71.3 Estimated GFR > 60 Random Glucose 90 (60-115) mg/dL Calcium 9.2 (8.4-10.2) mg/dL Total Bilirubin 0.7 (0.0-1.0) mg/dL AST 33 H (5-31) U/L ALT 18 (0-31) U/L Alkaline Phosphatase 97 (39-117) U/L Total Protein 7.6 (6.5-8.0) g/dL Albumin 4.2 (3.5-5.0) g/dL Urine Color Yellow Urine Appearance Turbid Urine pH 6.5 (5.0-9.0) Ur Specific Melvin 1.025 (1.005-1.025) Urine Protein Trace (Neg-Trace) mg/dL Urine Glucose (UA) Negative (Negative) mg/dL Urine Ketones Trace (Negative) mg/dL Urine Blood Trace H (Negative) Urine Nitrite Negative (Negative) Ur Leukocyte Esterase Moderate (2+) H (Negative) Urine RBC 3-5 H (0-2) /HPF Urine WBC 21-50 H (0-5) /HPF Ur Squamous Epith Cells 6-10 (0-2) /HPF Urine Bacteria 2+ (None Seen) Hyaline Casts 0-2 (0-2) /LPF Salicylates < 5.0 L (15-30) mg/dL Urine Opiates Screen Not Detected (Not Detect) Ur Buprenorphine Scrn Not Detected (Not Detect) ng/mL Ur Oxycodone Screen Not Detected (Not Detect) ng/mL Urine Methadone Screen Not Detected (Not Detect) ng/mL Urine Fentanyl Screen Not Detected (Not Detect) Acetaminophen < 3 (<30) mcg/mL Ur Barbiturates Screen Not Detected (Not Detect) Ur Phencyclidine Scrn Not Detected (Not Detect) Ur Amphetamines Screen Not Detected (Not Detect) U Benzodiazepines Scrn Not Detected (Not Detect) Urine Cocaine Screen Not Detected (Not Detect) U Marijuana (THC) Screen Not Detected (Not Detect) Ethyl Alcohol < 10 mg/dL Discharge Plan Discharge Clinical Impression: Depression Patient Disposition: Admitted As Inpatient Discharge Date/Time: 04/10/25 15:00
[2025-04-08 22:19] VITALS: PULSE 92; RESP 19
[2025-04-09 07:35] VITALS: BP 123/60; PULSE 66; RESP 13; TEMP 36.2; O2SAT 99
[2025-04-09 18:12] VITALS: BP 158/82; PULSE 95; RESP 20; TEMP 36.6; O2SAT 100
--- NOTE | 2025-04-09 18:28 | MHC.CARE ---
Patient evaluated by the CARE Team, disposition determined to be inpatient psychiatric treatment. ED provider, Dr. Meza updated
--- NOTE | 2025-04-09 18:51 | PHA.MEDREC ---
Pharmacy Consult ? Medication Reconciliation Pharmacy has completed the medication reconciliation. Spoke to patient to confirm med list. Patient states she is only taking Lamotrigine 200 mg , Levothyroxine 112 mg, Metformin 500 mg, and Quetiapine 25 mg. Patient states she doesn't remember when she last had her medications.
--- NOTE | 2025-04-10 | ECG_ITS ---
Test Reason : check prolonged qt Blood Pressure : */* mmHG Vent. Rate : 102 BPM Atrial Rate : 102 BPM P-R Int : 118 ms QRS Dur : 84 ms QT Int : 352 ms P-R-T Axes : 48 55 50 degrees QTcB Int : 458 ms Sinus tachycardia Otherwise normal ECG When compared with ECG of 09-Mar-2018 13:50, No significant change was found Referred By: Venkat Ness Electronically Signed By: YVONNE ESPINAL MD
[2025-04-10 06:00] VITALS: BP 111/74; PULSE 97; RESP 16; TEMP 36.3; O2SAT 100
[2025-04-10 06:45] LABS: Amphetamine Screen Urine Not Detected (Not Detect); Barbiturates, Urine Not Detected (Not Detect); Benzodiazepines Screen Urine Not Detected (Not Detect); Buprenorphine Scr Not Detected (Not Detect); Cannabinoid Screen Urine Not Detected (Not Detect); Cocaine Screen Urine Not Detected (Not Detect); Fentanyl, urine Not Detected (Not Detect); Methadone Screen, Urine Not Detected (Not Detect); Opiate Screen Urine Not Detected (Not Detect); Oxycodone Screen Urine Not Detected (Not Detect); Phencyclidine Screen Urine Not Detected (Not Detect)
[2025-04-10 08:11] LABS: Appearance Urine Turbid; Color Urine Yellow; Glucose Urine UA Negative (Negative); Leukocyte Esterase Urine Moderate (2+) (Negative); Nitrite Urine Negative (Negative); PH 6.5 (5.0-9.0); Specific Gravity - Urine 1.025 (1.005-1.025); UMIC TRIGGER UA YES; Urine Blood Trace (Negative); Urine Ketones Trace mg/dL (Negative); Urine Protein Trace mg/dL (Neg-Trace)
[2025-04-10 08:16] LABS: Bacteria Urine 2+ (None Seen); Hyaline Casts Urine 0-2 /LPF (0-2); WBC Urine 21-50 /HPF (0-5)
[2025-04-10 08:31] VITALS: BP 135/78; PULSE 60; RESP 15; TEMP 36.9; O2SAT 99
--- NOTE | 2025-04-10 13:47 | PC.NURSE ---
nurse to nurse on M3
--- NOTE | 2025-04-10 14:12 | PC.NURSE ---
Operations Welder at bedside, patient offered and accepted to have commercial drone software developer at bedside for inpatient admission
[2025-04-10 15:05] VITALS: BP 113/78; PULSE 110; RESP 18; TEMP 36.6; O2SAT 97
--- NOTE | 2025-04-10 15:36 | P.HPPS_ITS ---
HPI Date of Service: 04/10/25 Chief Complaint: SI Sources of Information: patient interviewed, chart reviewed and crisis/core team assessment reviewed HPI Subjective Notes: Section 12B Narrative: Patient is a 49-year-old female with history of bipolar disorder, PTSD and borderline personality d/o who presented to ER d/t overdosing on her prescription medications secondary to increased depressed and life stressors. Per crisis report, patient's ex-boyfriend requested crisis assessment due to patient stating she took more prescription medication than she was supposed to. Patient reported taking 8-10 pills of Lamictal and Seroquel to help her sleep . Patient's 15 year relationship ended 7 months ago and patient is trying to find an apartment. Patient has had multiple losses in the last year including friend dying during childbirth. Last year she lost her father to a heart attack, brother in an accident a few days later, and months after another brother . This is pt's 3rd time in a month that she has taken 5 Seroquel to help her sleep. Patient reports she has been depressed for 2 months; She reports history of bipolar disorder and borderline personality disorder. Denied SI/HI/VH/AH. Patient minimize the recent overdoses, though she acknowledged she should not have taken the extra pills. Patient reports that she took more because she did not fall asleep. patient reports she feels guilty for her ex- boyfriend trying to pay the mortgage and his own rent. Patient asking for VNA services. During admission assessment, T/W attempted to meet with pt with surgical scrub technician video services. T/W went into patient's room, pt became to say No, No ; and proceeded to get out of bed and walk out of room then down the terry. Per nursing, pt also declined to meet with them despite having in-person surgical scrub technician. Will attempt to meet with pt again tomorrow and build rapport. Continue home medications. Past Psychiatric History: Psychiatrist: Albaro Mars [facility] Therapist: Vita Ramirez [facility] hx of multiple inpatient psychiatric hospitalizations. hx of SA via overdose on medications. Medical Evaluation Reviewed: Yes [facility] Medical History (Updated 04/10/25 @ 17:08 by Brittanie Stone NP) Fibromyalgia, primary PCO (polycystic ovaries) Anxiety Hypothyroidism Surgical History No history of previous surgery Family History: unknown Social History: Lives alone. Works part-time. Substance History: denies Trauma History: yes Diagnostics Vital Signs (24Hr): Vital Signs - 24 hr 04/09/25 18:12 04/10/25 06:00 04/10/25 08:31 Temperature 97.9 F 97.4 F 98.4 F Pulse Rate 95 97 60 Respiratory Rate 20 16 15 Blood Pressure 158/82 H 111/74 135/78 Pulse Oximetry 100 100 99 Oxygen Delivery Method Room Air Room Air Room Air BMI result Body Mass Index 31.9 Labs 04/08/25 20:51 04/08/25 20:51 Labs: Laboratory Results - last 48 hr 04/08/25 04/10/25 20:51 06:24 WBC 6.0 RBC 4.49 Hgb 8.6 L Hct 29.7 L MCV 66.1 L MCH 19.2 L MCHC 29.0 L RDW 19.0 H Plt Count 422 H MPV 9.6 Immature Gran % (Auto) 0.5 H Neut % (Auto) 58.7 Lymph % (Auto) 33.4 Long % (Auto) 5.4 Eos % (Auto) 1.7 Baso % (Auto) 0.3 Lymph # (Auto) 2.0 Long # (Auto) 0.3 Eos # (Auto) 0.1 Baso # (Auto) 0.0 Abs Immat Gran (auto) 0.03 Absolute Neuts (auto) 3.5 Absolute Nucleated RBC 0.000 Nucleated RBC % (auto) 0.0 Smear Tech's Comments VERIFIED Sodium 142 Potassium 3.8 Chloride 109 H Carbon Dioxide 22 Anion Gap 15 BUN 11 Creatinine 0.84 Estim Creat Clear Calc 71.3 Estimated GFR > 60 Random Glucose 90 Calcium 9.2 Total Bilirubin 0.7 AST 33 H ALT 18 Alkaline Phosphatase 97 Total Protein 7.6 Albumin 4.2 Urine Color Yellow Urine Appearance Turbid Urine pH 6.5 Ur Specific [place] 1.025 Urine Protein Trace Urine Glucose (UA) Negative Urine Ketones Trace Urine Blood Trace H Urine Nitrite Negative Ur Leukocyte Esterase Moderate (2+) H Urine RBC 3-5 H Urine WBC 21-50 H Ur Squamous Epith Cells 6-10 Urine Bacteria 2+ Hyaline Casts 0-2 Salicylates < 5.0 L Urine Opiates Screen Not Detected Ur Buprenorphine Scrn Not Detected Ur Oxycodone Screen Not Detected Urine Methadone Screen Not Detected Urine Fentanyl Screen Not Detected Acetaminophen < 3 Ur Barbiturates Screen Not Detected Ur Phencyclidine Scrn Not Detected Ur Amphetamines Screen Not Detected U Benzodiazepines Scrn Not Detected Urine Cocaine Screen Not Detected U Marijuana (THC) Screen Not Detected Ethyl Alcohol < 10 Meds/Allergies Meds Home Medications ?Medication ?Instructions ?Recorded ?Confirmed ?Type lamotrigine 200 mg tablet 200 mg PO DAILY 04/09/25 04/09/25 History levothyroxine 112 mcg tablet 112 mcg PO DAILY@0600 04/09/25 04/09/25 History metformin 500 mg tablet 500 mg PO DAILY 04/09/25 04/09/25 History quetiapine 25 mg tablet 25 mg PO BID 04/09/25 04/09/25 History quetiapine 25 mg tablet 50 mg PO BEDTIME 04/09/25 04/09/25 History Allergies Allergies Allergy/AdvReac Type Severity Reaction Status Date / Time Penicillins Allergy Severe Difficulty Verified 04/08/25 19:54 Breathing, swelling aspirin [ASA] Allergy Intermediate Rash, Verified 04/08/25 19:54 Rapid Heart Beat sulfamethoxazole Allergy Mild Palpitation Verified 04/08/25 19:54 [From BACTRIM] s trimethoprim [From BACTRIM] Allergy Mild Palpitation Verified 04/08/25 19:54 s Sulfa (Sulfonamide Allergy Unknown Swelling Verified 04/08/25 19:54 Antibiotics) and Edema gluten Allergy Unknown Verified 04/08/25 19:54 oxcarbazepine [OXCARBAZEPINE] AdvReac Unknown high blood Verified 04/08/25 19:54 pressure Mental Status Exam Mental Status Exam Narrative: unable to assess full mental status d/t pt declining to meet with T/W. Patient Appearance: Appropriate Level of Consciousness: Awake and Alert Patient Behavior: Guarded, Avoidant and Poor Eye Contact Affect Description: Blunted Assessment & Plan Assessment & Plan (1) Bipolar disorder: Status: Acute Code(s): F31.9 - Bipolar disorder, unspecified (2) PTSD (post-traumatic stress disorder): Status: Acute Code(s): F43.10 - Post-traumatic stress disorder, unspecified (3) Borderline personality disorder: Status: Acute Code(s): F60.3 - Borderline personality disorder Plan Patient is a 49-year-old female with history of bipolar disorder, PTSD and borderline personality d/o who presented to ER d/t overdosing on her prescription medications secondary to increased depressed and life stressors. Plan: 12B 15 minute safety checks Continue home medications obtain collateral build rapport encourage groups referral to VNA discharge planning Patient educated on: other (pt declined to meet with T/W) Reason for continued inpatient stay Substantial Risk for: harm to self and med/psych decompensation Statement Statement: I have reviewed the history and physical and performed a pertinent examination on my patient. No changes have occurred unless specified. If the History and Physical was not performed prior to admission, the Hospitalist's service will be consulted for completing the admission physical. Time Spent With Patient Time: Total time managing care of this patient today _30___ minutes.
--- NOTE | 2025-04-10 16:58 | PC.ADMIT ---
?Laverne is a 49 y/o belizean speaking female who was admitted to unit at 1505 from Pod on a 12b for treatment of Bipolar d/o with SI attempt via OD on her prescribed Seroquel and Lamictal, 8-10 pills, ?to sleep?. Pt has become overwhelmed with outside stressors including the breakup with her partner 7 months ago and needing to find somewhere new to live because she can no longer afford to live alone.Per ex boyfriend pt has been experiencing rapid mood swings.? Pt was oriented to person and place, but became distraught before any further assessment could be assessed. Pt came to unit calm, but became distraught during pattern changer and repairer initially refusing but then doing partial, refusing to change underwear. Pt was explained the pattern changer and repairer process prior too with the video consulting nurse ([employer] #[id number]). Pt began crying and yelling,?why does everyone want to see me.? repeatedly. Pt then said, ?I?m tired I?m just going to lay down? in a loud and tearful manner. Pt was labile, sad with an irritable affect. Most information obtained from the crisis intake since pt refused to meet with TW or the provider. Per eval it is unknown whe the pt last took her prescribed medications as ordered. Pt was not visibly responding to internal stimulation.? When asked about her safety on the unit , pt responded with ,? How can I be unsafe when there's cameras everywhere. Tox screen was negative. Pt has a history of Hypothyroidism,Polycystic ovaries, and fibromyalgia. Per crisis eval sleep has been disrupted, but appetite has been ok. Pt provided no physical complaints. Pt placed on 15 minute safety checks.
[2025-04-10 20:00] VITALS: BP 118/59; PULSE 93; RESP 16; TEMP 36.3; O2SAT 98
[2025-04-11] MEDS: Levothyroxine Sodium 112 MCG TABLET PO (06:15)
[2025-04-11 07:59] VITALS: BP 128/78; PULSE 91; RESP 14; TEMP 36.7; O2SAT 100
[2025-04-11] MEDS: metFORMIN HCl 500 MG TABLET PO (08:05)
[2025-04-11] MEDS: lamoTRIgine 100 MG TABLET 200 MG PO (08:05)
[2025-04-11 08:22] LABS: Alanine Aminotransferase 15 U/L (0-31); Albumin Level 4.3 g/dL (3.5-5.0); Alkaline Phosphatase 92 U/L (39-117); Anion Gap 11 (12-20); Aspartate Amino Transferase 21 U/L (5-31); Bilirubin Total 0.8 mg/dL (0.0-1.0); Blood Urea Nitrogen 16 mg/dL (9-16); Calcium 9.2 mg/dL (8.4-10.2); Carbon Dioxide 25 mmol/L (22-29); Chloride 108 mmol/L (96-108); Cholesterol 261 mg/dL (<200); Creatinine Clr Calc Pharmacy 75.8; Estimated Glomerular Filt Rate > 60; Glucose Random 99 mg/dL (60-115); HDL Cholesterol 37 mg/dL (>40); LDL Cholesterol Calculated 195 mg/dL (<100); Potassium 3.9 mmol/L (3.3-5.1); Sodium 140 mmol/L (135-145); Total Protein 7.6 g/dL (6.5-8.0); Triglycerides 147 mg/dL (<150)
--- NOTE | 2025-04-11 09:13 | HO.PSYCHPN ---
Subjective Subjective Date of Service: 04/11/25 Reason For Visit: SI Subjective Notes: Section 12B Interim History: equalizing saw operator present. Active on unit, social with select peers. attending groups. Patient reports feeling stressed today; pt apologized for not meeting with T/W yesterday. Pt stated, I took the extra pills because I was stressed out and wanted to sleep, not to take my life. I love my job and social life . Patient reports she has been taking extra doses of Seroquel d/t poor sleep. Pt reports she never wanted to end my life ; pt stated, my ex has been there for me. I'm worried about his expenses. I miss my partner. I feel sensitive and he wants me to be calm . denies hx of SA/SIB. denies SI/HI/VH/AH. Discussed increasing Seroquel to 100mg PO bedtime to help with sleep; pt agreed. Medication Compliance: Yes Side effects from medications: No Attending Groups: Yes Mental Status Exam Mental Status Exam Narrative: Pt is alert and oriented; behavior is cooperative and calm; dressed in casual attire; mood is described as stressed ; eye contact appropriate; Speech is normal rate, volume and not pressured; thought process is organized; Thought content is on tx; otherwise pertinent to relevant topics and without any delusional content, paranoid ideations or grandiosity; denies SI/HI/VH/AH. Diagnostics Vital Signs (24Hr): Vital Signs - 24 hr 04/10/25 15:05 04/10/25 20:00 04/11/25 07:59 Temperature 97.9 F 97.3 F 98.0 F Pulse Rate 110 H 93 91 Respiratory Rate 18 16 14 Blood Pressure 113/78 118/59 L 128/78 Pulse Oximetry 97 98 100 Oxygen Delivery Method Room Air Room Air Room Air BMI result Body Mass Index 31.9 Labs 04/08/25 20:51 04/11/25 07:43 Labs: Laboratory Results - last 48 hr 04/10/25 04/11/25 06:24 07:43 Sodium 140 Potassium 3.9 Chloride 108 Carbon Dioxide 25 Anion Gap 11 L BUN 16 Creatinine 0.79 Estim Creat Clear Calc 75.8 Estimated GFR > 60 Random Glucose 99 Calcium 9.2 Total Bilirubin 0.8 AST 21 ALT 15 Alkaline Phosphatase 92 Total Protein 7.6 Albumin 4.3 Triglycerides 147 Cholesterol 261 H LDL Cholesterol, Calc 195 H HDL Cholesterol 37 L Urine Color Yellow Urine Appearance Turbid Urine pH 6.5 Ur Specific [place] 1.025 Urine Protein Trace Urine Glucose (UA) Negative Urine Ketones Trace Urine Blood Trace H Urine Nitrite Negative Ur Leukocyte Esterase Moderate (2+) H Urine RBC 3-5 H Urine WBC 21-50 H Ur Squamous Epith Cells 6-10 Urine Bacteria 2+ Hyaline Casts 0-2 Urine Opiates Screen Not Detected Ur Buprenorphine Scrn Not Detected Ur Oxycodone Screen Not Detected Urine Methadone Screen Not Detected Urine Fentanyl Screen Not Detected Ur Barbiturates Screen Not Detected Ur Phencyclidine Scrn Not Detected Ur Amphetamines Screen Not Detected U Benzodiazepines Scrn Not Detected Urine Cocaine Screen Not Detected U Marijuana (THC) Screen Not Detected Medications Medications Current Medications Acetaminophen (Acetaminophen 325 Mg Tablet) 650 mg PO Q6H PRN PRN Reason: Headache/Pain, Scale 1-10 Al Hydroxide/Mg Hydroxide (Magnesium Hydrox/Alum Hydrox 30 Ml Oral.Susp) 30 ml PO Q6H PRN PRN Reason: Heartburn/Nausea Hydroxyzine HCl (Hydroxyzine Hcl 25 Mg Tablet) 25 mg PO Q6H PRN PRN Reason: mild anxiety Lamotrigine (Lamotrigine 100 Mg Tablet) 200 mg PO DAILY [facility] Last Admin: 04/11/25 08:05 Dose: 200 mg Levothyroxine Sodium (Levothyroxine Sodium 112 Mcg Tablet) 112 mcg PO DAILY@0600 [facility] Last Admin: 04/11/25 06:15 Dose: 112 mcg Magnesium Hydroxide (Milk Of Magnesia 30 Ml Oral.Susp) 30 ml PO DAILY PRN PRN Reason: Constipation Metformin HCl (Metformin Hcl 500 Mg Tablet) 500 mg PO DAILY [facility] Last Admin: 04/11/25 08:05 Dose: 500 mg Nicotine (Nicotine 21 Mg Patch.Td24) 21 mg TRANSDERMA DAILY [facility] Last Admin: 04/11/25 08:37 Dose: Not Given Nicotine Polacrilex (Nicotine Polacrilex 2 Mg Gum) 4 mg BUCCAL Q2H PRN PRN Reason: Nicotine Cravings Olanzapine (Olanzapine 5 Mg Tablet) 5 mg PO Q4H PRN PRN Reason: agitation Quetiapine Fumarate (Quetiapine Fumarate 50 Mg Tablet) 50 mg PO BEDTIME [facility] Last Admin: 04/10/25 22:04 Dose: Not Given Quetiapine Fumarate (Quetiapine Fumarate 25 Mg Tablet) 25 mg PO BID@0900,1500 [facility] Last Admin: 04/11/25 08:38 Dose: Not Given Trazodone HCl (Trazodone Hcl 50 Mg Tablet) 50 mg PO BEDTIME MRX1 PRN PRN Reason: Insomnia Allergies Allergies Allergy/AdvReac Type Severity Reaction Status Date / Time Penicillins Allergy Severe Difficulty Verified 04/08/25 19:54 Breathing, swelling aspirin [ASA] Allergy Intermediate Rash, Verified 04/08/25 19:54 Rapid Heart Beat sulfamethoxazole Allergy Mild Palpitation Verified 04/08/25 19:54 [From BACTRIM] s trimethoprim [From BACTRIM] Allergy Mild Palpitation Verified 04/08/25 19:54 s Sulfa (Sulfonamide Allergy Unknown Swelling Verified 04/08/25 19:54 Antibiotics) and Edema gluten Allergy Unknown Verified 04/08/25 19:54 oxcarbazepine [OXCARBAZEPINE] AdvReac Unknown high blood Verified 04/08/25 19:54 pressure Assessment & Plan Assessment & Plan (1) Bipolar disorder: Status: Acute Code(s): F31.9 - Bipolar disorder, unspecified (2) PTSD (post-traumatic stress disorder): Status: Acute Code(s): F43.10 - Post-traumatic stress disorder, unspecified (3) Borderline personality disorder: Status: Acute Code(s): F60.3 - Borderline personality disorder Plan Patient is a 49-year-old female with history of bipolar disorder, PTSD and borderline personality d/o who presented to ER d/t overdosing on her prescription medications secondary to increased depressed and life stressors. Plan: 12B 15 minute safety checks Continue home medications obtain collateral build rapport encourage groups referral to VNA discharge planning 04/11: equalizing saw operator present. Active on unit, social with select peers. attending groups. Patient reports feeling stressed today; pt apologized for not meeting with T/W yesterday. Pt stated, I took the extra pills because I was stressed out and wanted to sleep, not to take my life. I love my job and social life . Patient reports she has been taking extra doses of Seroquel d/t poor sleep. Pt reports she never wanted to end my life ; pt stated, my ex has been there for me. I'm worried about his expenses. I miss my partner. I feel sensitive and he wants me to be calm . denies hx of SA/SIB. denies SI/HI/VH/AH. Discussed increasing Seroquel to 100mg PO bedtime to help with sleep; pt agreed. Patient educated on: diagnosis, medication risk/benefits and therapeutic strategies Reason for continued inpatient stay Substantial Risk for: med/psych decompensation Time Spent With Patient Time: Total time managing care of this patient today _20___ minutes.
[2025-04-11 09:27] LABS: Estimated Average Glucose 105 mg/dL; Hemoglobin A1c % 5.3 % (<6.0); Total Hemoglobin (HGBA1C) 2443.6627 umol/L
[2025-04-11] MEDS: Acetaminophen 325 MG TABLET 650 MG PO (13:49)
[2025-04-11 19:44] VITALS: BP 125/85; PULSE 98; RESP 16; TEMP 37.1; O2SAT 99
[2025-04-11] MEDS: QUEtiapine Fumarate 100 MG TABLET PO (20:45)
[2025-04-12] MEDS: Levothyroxine Sodium 112 MCG TABLET PO (06:28)
[2025-04-12 07:00] VITALS: BMI 31.9
[2025-04-12 07:40] VITALS: BP 124/60; PULSE 90; RESP 16; TEMP 36.7; O2SAT 100
[2025-04-12] MEDS: metFORMIN HCl 500 MG TABLET PO (08:45)
[2025-04-12] MEDS: lamoTRIgine 100 MG TABLET 200 MG PO (08:45)
--- NOTE | 2025-04-12 09:46 | HO.PSYCHPN ---
Subjective Subjective Date of Service: 04/12/25 Reason For Visit: SI Subjective Notes: Section 12B Interim History: educational interpreter present. Active on unit, social with select peers. attending groups. Patient reports feeling good today;pt stated, I've been laughing and talking a lot with people . She reports improved sleep with increase in Seroquel; denies any side effects. Pt stated, I'm not going to ever take more medications unless my doctor tells me it's okay . Pt requesting VNA for medication management; social work aware. denies SI/HI/VH/AH. 12b up 04/13/25. Patient reports she plans on following up with outpatient providers. Medication Compliance: Yes Side effects from medications: No Attending Groups: Yes Mental Status Exam Mental Status Exam Narrative: Pt is alert and oriented; behavior is cooperative, friendly and calm; dressed in casual attire; mood is described as good ; eye contact appropriate; Speech is normal rate, volume and not pressured; thought process is organized; Thought content is on discharge; denies SI/HI/VH/AH. Diagnostics Vital Signs (24Hr): Vital Signs - 24 hr 04/11/25 19:44 04/12/25 07:40 Temperature 98.7 F 98.0 F Pulse Rate 98 90 Respiratory Rate 16 16 Blood Pressure 125/85 124/60 Pulse Oximetry 99 100 Oxygen Delivery Method Room Air Room Air BMI result Body Mass Index 31.9 Labs 04/08/25 20:51 04/11/25 07:43 Labs: Laboratory Results - last 48 hr 04/11/25 07:43 Sodium 140 Potassium 3.9 Chloride 108 Carbon Dioxide 25 Anion Gap 11 L BUN 16 Creatinine 0.79 Estim Creat Clear Calc 75.8 Estimated GFR > 60 Random Glucose 99 Estimat Average Glucose 105 Hemoglobin A1c % 5.3 Calcium 9.2 Total Bilirubin 0.8 AST 21 ALT 15 Alkaline Phosphatase 92 Total Protein 7.6 Albumin 4.3 Triglycerides 147 Cholesterol 261 H LDL Cholesterol, Calc 195 H HDL Cholesterol 37 L Medications Medications Current Medications Acetaminophen (Acetaminophen 325 Mg Tablet) 650 mg PO Q6H PRN PRN Reason: Headache/Pain, Scale 1-10 Last Admin: 04/11/25 13:49 Dose: 650 mg Al Hydroxide/Mg Hydroxide (Magnesium Hydrox/Alum Hydrox 30 Ml Oral.Susp) 30 ml PO Q6H PRN PRN Reason: Heartburn/Nausea Hydroxyzine HCl (Hydroxyzine Hcl 25 Mg Tablet) 25 mg PO Q6H PRN PRN Reason: mild anxiety Lamotrigine (Lamotrigine 100 Mg Tablet) 200 mg PO DAILY [facility] Last Admin: 04/12/25 08:45 Dose: 200 mg Levothyroxine Sodium (Levothyroxine Sodium 112 Mcg Tablet) 112 mcg PO DAILY@0600 [facility] Last Admin: 04/12/25 06:28 Dose: 112 mcg Magnesium Hydroxide (Milk Of Magnesia 30 Ml Oral.Susp) 30 ml PO DAILY PRN PRN Reason: Constipation Metformin HCl (Metformin Hcl 500 Mg Tablet) 500 mg PO DAILY [facility] Last Admin: 04/12/25 08:45 Dose: 500 mg Olanzapine (Olanzapine 5 Mg Tablet) 5 mg PO Q4H PRN PRN Reason: agitation Quetiapine Fumarate (Quetiapine Fumarate 100 Mg Tablet) 100 mg PO BEDTIME [facility] Last Admin: 04/11/25 20:45 Dose: 100 mg Allergies Allergies Allergy/AdvReac Type Severity Reaction Status Date / Time Penicillins Allergy Severe Difficulty Verified 04/08/25 19:54 Breathing, swelling aspirin [ASA] Allergy Intermediate Rash, Verified 04/08/25 19:54 Rapid Heart Beat sulfamethoxazole Allergy Mild Palpitation Verified 04/08/25 19:54 [From BACTRIM] s trimethoprim [From BACTRIM] Allergy Mild Palpitation Verified 04/08/25 19:54 s Sulfa (Sulfonamide Allergy Unknown Swelling Verified 04/08/25 19:54 Antibiotics) and Edema gluten Allergy Unknown Verified 04/08/25 19:54 oxcarbazepine [OXCARBAZEPINE] AdvReac Unknown high blood Verified 04/08/25 19:54 pressure Assessment & Plan Assessment & Plan (1) Bipolar disorder: Status: Acute Code(s): F31.9 - Bipolar disorder, unspecified (2) PTSD (post-traumatic stress disorder): Status: Acute Code(s): F43.10 - Post-traumatic stress disorder, unspecified (3) Borderline personality disorder: Status: Acute Code(s): F60.3 - Borderline personality disorder Plan Patient is a 49-year-old female with history of bipolar disorder, PTSD and borderline personality d/o who presented to ER d/t overdosing on her prescription medications secondary to increased depressed and life stressors. Plan: 12B 15 minute safety checks Continue home medications obtain collateral build rapport encourage groups referral to VNA discharge planning 04/11: educational interpreter present. Active on unit, social with select peers. attending groups. Patient reports feeling stressed today; pt apologized for not meeting with T/W yesterday. Pt stated, I took the extra pills because I was stressed out and wanted to sleep, not to take my life. I love my job and social life . Patient reports she has been taking extra doses of Seroquel d/t poor sleep. Pt reports she never wanted to end my life ; pt stated, my ex has been there for me. I'm worried about his expenses. I miss my partner. I feel sensitive and he wants me to be calm . denies hx of SA/SIB. denies SI/HI/VH/AH. Discussed increasing Seroquel to 100mg PO bedtime to help with sleep; pt agreed. 04/12: educational interpreter present. Active on unit, social with select peers. attending groups. Patient reports feeling good today;pt stated, I've been laughing and talking a lot with people . She reports improved sleep with increase in Seroquel; denies any side effects. Pt stated, I'm not going to ever take more medications unless my doctor tells me it's okay . Pt requesting VNA for medication management; social work aware. denies SI/HI/VH/AH. 12b up 04/13/25. Patient reports she plans on following up with outpatient providers. Patient educated on: diagnosis and medication risk/benefits Reason for continued inpatient stay Substantial Risk for: stable for discharge Time Spent With Patient Time: Total time managing care of this patient today _20___ minutes.
[2025-04-12 19:41] VITALS: BP 128/76; PULSE 102; TEMP 36.4; O2SAT 98
[2025-04-12] MEDS: QUEtiapine Fumarate 100 MG TABLET PO (21:14)
[2025-04-13] MEDS: Levothyroxine Sodium 112 MCG TABLET PO (06:51)
[2025-04-13 07:37] VITALS: BP 125/63; PULSE 94; RESP 16; TEMP 36.4; O2SAT 100
--- NOTE | 2025-04-13 08:31 | P.DS_ITS ---
DS: Providers Provider Date of Service: 04/13/25 Date of admission: 04/10/25 12:34 Date of discharge: 04/13/25 Primary care physician: Serge Del Rosario MD Admitting clinician: Brittanie Stone Attending physician on admission: Dante Ferraro Attending physician on discharge: Dante Ferraro Discharging clinician: Brittanie Stone DS: Diagnosis Discharge Diagnosis (1) Bipolar disorder: Status: Acute (2) PTSD (post-traumatic stress disorder): Status: Acute (3) Borderline personality disorder: Status: Acute DS: Medications Discharge Medications Home Medications: Home Medications ?Medication ?Instructions ?Recorded ?Confirmed lamotrigine 200 mg tablet 200 mg PO DAILY 04/09/25 04/09/25 levothyroxine 112 mcg tablet 112 mcg PO DAILY@0600 04/09/25 04/09/25 metformin 500 mg tablet 500 mg PO DAILY 04/09/25 04/09/25 Previous Rx's ?Medication ?Instructions ?Recorded quetiapine 100 mg tablet 100 mg PO BEDTIME 7 days #7 tabs 04/12/25 Mental Status Exam Mental Status Exam Narrative: Pt is alert and oriented; behavior is cooperative, friendly and calm; dressed in casual attire; mood is described as good ; eye contact appropriate; Speech is normal rate, volume and not pressured; thought process is organized; Thought content is on discharge; denies SI/HI/VH/AH. Data Data Completed and Pending Completed studies during hospitalization [Text1]: 04/08/25 04/10/25 04/11/25 20:51 06:24 07:43 WBC 6.0 RBC 4.49 Hgb 8.6 L Hct 29.7 L MCV 66.1 L MCH 19.2 L MCHC 29.0 L RDW 19.0 H Plt Count 422 H MPV 9.6 Immature Gran % (Auto) 0.5 H Neut % (Auto) 58.7 Lymph % (Auto) 33.4 [place] % (Auto) 5.4 Eos % (Auto) 1.7 Baso % (Auto) 0.3 Lymph # (Auto) 2.0 [place] # (Auto) 0.3 Eos # (Auto) 0.1 Baso # (Auto) 0.0 Abs Immat Gran (auto) 0.03 Absolute Neuts (auto) 3.5 Absolute Nucleated RBC 0.000 Nucleated RBC % (auto) 0.0 Smear Tech's Comments VERIFIED Sodium 142 140 Potassium 3.8 3.9 Chloride 109 H 108 Carbon Dioxide 22 25 Anion Gap 15 11 L BUN 11 16 Creatinine 0.84 0.79 Estim Creat Clear Calc 71.3 75.8 Estimated GFR > 60 > 60 Random Glucose 90 99 Estimat Average Glucose 105 Hemoglobin A1c % 5.3 Calcium 9.2 9.2 Total Bilirubin 0.7 0.8 AST 33 H 21 ALT 18 15 Alkaline Phosphatase 97 92 Total Protein 7.6 7.6 Albumin 4.2 4.3 Triglycerides 147 Cholesterol 261 H LDL Cholesterol, Calc 195 H HDL Cholesterol 37 L Urine Color Yellow Urine Appearance Turbid Urine pH 6.[address] [place] 1.025 Urine Protein Trace Urine Glucose (UA) Negative Urine Ketones Trace Urine Blood Trace H Urine Nitrite Negative Ur Leukocyte Esterase Moderate (2+) H Urine RBC 3-5 H Urine WBC 21-50 H Ur Squamous Epith Cells 6-10 Urine Bacteria 2+ Hyaline Casts 0-2 Salicylates < 5.0 L Urine Opiates Screen Not Detected Ur Buprenorphine Scrn Not Detected Ur Oxycodone Screen Not Detected Urine Methadone Screen Not Detected Urine Fentanyl Screen Not Detected Acetaminophen < 3 Ur Barbiturates Screen Not Detected Ur Phencyclidine Scrn Not Detected Ur Amphetamines Screen Not Detected U Benzodiazepines Scrn Not Detected Urine Cocaine Screen Not Detected U Marijuana (THC) Screen Not Detected Ethyl Alcohol < 10 DS: Summary Hospital Course Hospital Course: Patient is a 49-year-old female with history of bipolar disorder, PTSD and borderline personality d/o who presented to ER d/t overdosing on her prescription medications secondary to increased depressed and life stressors. Per crisis report, patient's ex-boyfriend requested crisis assessment due to patient stating she took more prescription medication than she was supposed to. Patient reported taking 8-10 pills of Lamictal and Seroquel to help her sleep . Patient's 15 year relationship ended 7 months ago and patient is trying to find an apartment. Patient has had multiple losses in the last year including friend dying during childbirth. Last year she lost her father to a heart attack, brother in an accident a few days later, and months after another brother . This is pt's 3rd time in a month that she has taken 5 Seroquel to help her sleep. Patient reports she has been depressed for 2 months; She reports history of bipolar disorder and borderline personality disorder. Denied SI/HI/VH/AH. Patient minimize the recent overdoses, though she acknowledged she should not have taken the extra pills. Patient reports that she took more because she did not fall asleep. patient reports she feels guilty for her ex-boyfriend trying to pay the mortgage and his own rent. Patient asking for VNA services. During admission assessment, T/W attempted to meet with pt with spanish interpreter video services. T/W went into patient's room, pt became to say No, No ; and proceeded to get out of bed and walk out of room then down the terry. Per nursing, pt also declined to meet with them despite having in-person spanish interpreter. Will attempt to meet with pt again tomorrow and build rapport. Continue home medications. Plan: 12B 15 minute safety checks Continue home medications obtain collateral build rapport encourage groups referral to VNA discharge planning spanish interpreter present. Active on unit, social with select peers. attending groups. Patient reports feeling stressed today; pt apologized for not meeting with T/W yesterday. Pt stated, I took the extra pills because I was stressed out and wanted to sleep, not to take my life. I love my job and social life . Patient reports she has been taking extra doses of Seroquel d/t poor sleep. Pt reports she never wanted to end my life ; pt stated, my ex has been there for me. I'm worried about his expenses. I miss my partner. I feel sensitive and he wants me to be calm . denies hx of SA/SIB. denies SI/HI/VH/AH. Discussed increasing Seroquel to 100mg PO bedtime to help with sleep; pt agreed. spanish interpreter present. Active on unit, social with select peers. attending groups. Patient reports feeling good today;pt stated, I've been laughing and talking a lot with people . She reports improved sleep with increase in Seroquel; denies any side effects. Pt stated, I'm not going to ever take more medications unless my doctor tells me it's okay . Pt requesting VNA for medi cation management; social work aware. denies SI/HI/VH/AH. 12b up 04/13/25. Patient reports she plans on following up with outpatient providers. Status at Discharge Cognitive/behavioral status at discharge: Patient has insight and demonstrates good judgment in terms of wanting to pursue treatment. Patient has a safety plan that includes presenting to the closest ER or calling 911 if feeling unsafe. Functional status at discharge: independent ambulation Overall status at discharge: patient is back to baseline Time Spent with Patient Time attestation: Total time managing care of this patient today _20___ minutes. Time spent: Less than 30 minutes Discharge Plan Discharge Anticipated Discharge Date/Time: 04/13/25 10:00 Patient Disposition: Home, Self-Care Discharge Diagnosis: Bipolar d/o, PTSD, Borderline personality d/o Referrals: Serge Del Rosario MD [Primary Care Provider] - 1 Week (04-12-25 Please contact your primary care provider to schedule a follow up appt within 7-10 days of your discharge. No release on file.) Discharge Medications: New quetiapine 100 mg Tablet 100 mg PO BEDTIME 7 Days Qty: 7 3RF Continued lamotrigine 200 mg tablet 200 mg PO DAILY levothyroxine 112 mcg tablet 112 mcg PO DAILY@0600 metformin 500 mg tablet 500 mg PO DAILY Discontinued quetiapine 25 mg tablet 25 mg PO BID quetiapine 25 mg tablet 50 mg PO BEDTIME Discharge Orders: Discharge Order (Routine); Ordered 04/13/25 Ordered By: Brittanie Stone Diet: Regular diet Activity on Discharge: As tolerated Stand Alone Forms: Patient Portal Discharge page, Community Support Print Language: Jordanian Care Plan Goals: Maintain mood and safe behaviors Take medications as prescribed Practice coping skills Continue with outpatient providers and reach out to them as needed Health Concerns: Mood stability and behaviors Plan of Treatment: Follow up with your PCP, psychiatric provider and other outpatient providers regarding above concerns Take medications as prescribed Assessment: Patient has insight and demonstrates good judgment in terms of wanting to pursue treatment. Patient has a safety plan that includes presenting to the closest ER or calling 911 if feeling unsafe. Discharge Date/Time: 04/13/25 10:17
[2025-04-13] MEDS: lamoTRIgine 100 MG TABLET 200 MG PO (08:55)
[2025-04-13] MEDS: metFORMIN HCl 500 MG TABLET PO (08:55)
== END 2025-04-13 10:17 | disposition home or self-care (01) | DRG 885 ==
LOC: HO.ED 04-10 12:54 → HO.PADLT16 04-10 14:32
PROVIDERS: Physician Assistant; Admitting Provider Registered Nurse; Emergency Provider Emergency Medicine Emergency Medical Services; PCP Internal Medicine; Responsible Provider Registered Nurse; Visit Provider Psychiatry & Neurology Psychiatry
DX: F31.9 Bipolar disorder, unspecified (principal); F43.10 Post-traumatic stress disorder, unspecified; F60.3 Borderline personality disorder; T43.594A Poisoning by other antipsychotics and neuroleptics, undetermined, initial encounter; T42.6X4A Poisoning by other antiepileptic and sedative-hypnotic drugs, undetermined, initial encounter; Z91.51 Personal history of suicidal behavior; Z63.4 Disappearance and death of family member; Z79.84 Long term (current) use of oral hypoglycemic drugs; Z79.890 Hormone replacement therapy; Z79.899 Other long term (current) drug therapy
CPT/HCPCS: 36415; 80053; 80061; 80143; 80179; 80307; 81001; 83036; 85025; 93005; 99285; S9485

== ENCOUNTER → 2025-04-10 08:02 | Outpatient (BNV) | payer OTHER, SELFPAY | PROVIDERS: Emergency Provider Emergency Medicine Emergency Medical Services; PCP Internal Medicine; Visit Provider Internal Medicine Cardiovascular Disease | DX: R00.0 Tachycardia, unspecified (principal) | CPT/HCPCS: 93010 ==

== ENCOUNTER → 2025-04-10 12:34 | Outpatient (BNV) | payer OTHER, SELFPAY | PROVIDERS: Admitting Provider Registered Nurse; Emergency Provider Emergency Medicine Emergency Medical Services; PCP Internal Medicine; Responsible Provider Registered Nurse; Visit Provider Registered Nurse | DX: F31.9 Bipolar disorder, unspecified (principal); F43.10 Post-traumatic stress disorder, unspecified; F60.3 Borderline personality disorder | CPT/HCPCS: 90792 ==